=== PATIENT | male | born 1960 | race Caucasian/White ===

== ENCOUNTER 2025-05-29 10:27 | Outpatient (AMB) | payer MEDICARE, MEDICAID, SELFPAY ==
--- OUTSIDE RECORDS SUMMARY | 2024-03-29 11:53 | XMS_ITS | Encounter Summary ---
Author Organization [employer] Address [address] [place] [address] Care Team Providers Care Car Cleaner Name Role Phone Adeel Yeh MD Primary Care Provider [phone] Encounter Details Date Type Department Care Team (Late st Contact Info) Description 03/29/2024 12:53 PM EDT Hospital Encounter TH HISTORIC ENCOUNTERS EASTERN CONVERSION ONLY Tegan Marie PA [address] [place] [address] Social History Tobacco Use Types Packs/Day Years Used Date Smoking Tobacco: Every Day Cigarettes 1 55.9 Started: 1970 Passive Smoke Exposure: Current Smokeless [...] Record ed Within the last 3 months, christie w many times did you visit the [...] care for your loved ones. For example, child support specialist or elderly care for an older adult? [...] PCP team for further evaluation of leukocytosis. [facility], [...] He already participate in LDCT program through [facility] but he is transitioning to [facility], his next LDCT is coming up this month. He snores only if sleeps on his back. 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 He [...] 236 Neutrophil # 8.02 Lymph # 2.71 Avery 0.78 BUN 16 Creatinine 0.87 GFR 98 [...] MD Sign: Tegan Marie PA-C Hematology/Oncology [facility] [phone] documented in this encounter Plan of Treatment Upcoming Encounters Date Type Department Care Team (Late st Contact Info) Description 06/17/2025 8:00 AM EST Appointment [facility] CT Scan [address] [place] [address] documented as of this encounter Procedures Procedure Name Priority Date/Time Associated Diagnosis Comments ..MISCELLANEOUS REFERENCE LAB TEST 03/29/2024 documented in this encounter Results * Miscellaneous reference lab test (03/29/2024) us Provider Onbase LAB BLOOD ORDERABLES Final Re sult documented in this encounter Visit Diagnoses Not on filedocumented in this encounter Care Teams Car Cleaner Relationship Specialty Start Date End Date Adeel Yeh MD [address] [place] [phone] PCP - General 07/24/23 documented as of this encounter
--- OUTSIDE RECORDS SUMMARY | 2024-03-29 12:00 | XMS_ITS | Encounter Summary ---
Author Organization [employer] Address [address] [place] [address] Care Team Providers Care Nut Blanker Operator Name Role Phone Adeel Yeh MD Primary Care Provider [phone] Encounter Details Date Type Department Care Team (Late st Contact Info) Description 03/29/2024 1:00 PM EDT Hospital Encounter TH HISTORIC ENCOUNTERS EASTERN CONVERSION ONLY Tegan Marie PA [address] [place] [address] Social History Tobacco Use Types Packs/Day Years [...] do you feel lonely or isolated from th ose around you? Rarely 04/21/2025 Food Risk [...] for your loved ones. For example, child and adolescent psychiatrist or elderly care for an older adult? [...] as of this encounter Plan of Treatment Upcoming Encounters Date Type Department Care Team (Late st Contact Info) Description 06/17/2025 8:00 AM EST Appointment [facility] CT Scan [address] [place] [address] documented as of this encounter Visit Diagnoses Not on filedocumented in this encounter Care Teams Nut Blanker Operator Relationship Specialty Start Date End Date Adeel Yeh MD [address] [place] [phone] PCP - General 07/24/23 documented as of this encounter
--- OUTSIDE RECORDS SUMMARY | 2024-04-14 10:16 | XMS_ITS | Encounter Summary ---
Author Organization [facility] Address [address] [place] [address] Care Team Providers Care Automotive Welder Name Role Phone Adeel Yeh MD Primary Care Provider [phone] Encounter Details Date Type Department Care Team (Late st Contact Info) Description 04/14/2024 11:16 AM EDT Hospital Encounter TH HISTORIC ENCOUNTERS EASTERN CONVERSION ONLY Tegan Marie PA [address] [place] [address] Social History Tobacco Use Types Packs/Day Years [...] for your loved ones. For example, children's tutor nursery or elderly care for an older adult? [...] Marie PA-C Service: -- Author Type: Physician Farmworker Fruit Filed: 04/14/2024 12:50 PM Encounter Date: 04/14/2024 Status: Attested Robotic Maintenance Technician: Tegan Marie PA-C (Physician Farmworker Fruit) Cosigner: Gisselle Tirado DO at 04/18/2024 9:21 [...] for clinical reference and updated as needed) [facility] records date as far back as 2018, [...] He already participate in LDCT program through [facility] but he is transitioning to [facility], his next LDCT is coming up this month. He snores only if sleeps on his back. 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 [...] REMOVAL OF LUNG LOBE/LESI ? STENT, CORONARY, SOAHM 2016 SOCIAL HISTORY: Social History Tobacco Use [...] MD Sign: Tegan Marie PA-C Hematology/Oncology [facility] [phone] Attestation signed by Gisselle Tirado DO at 04/18/2024 9:21 PM Agree with note as above WBC now completely normal Recommend primary team follow up blood counts and pancreatic cyst, refer back PRN documented in this encounter Plan of Treatment Upcoming Encounters Date Type Department Care Team (Late st Contact Info) Description 06/17/2025 8:00 AM EST Appointment [facility] CT Scan [address] [place] [address] documented as of this encounter Procedures Procedure Name Priority Date/Time Associated Diagnosis Comments ..MISCELLANEOUS REFERENCE LAB TEST 04/14/2024 documented in this encounter Results * Miscellaneous reference lab test (04/14/2024) us Provider Onbase MD LAB BLOOD ORDERABLES Final Re sult documented in this encounter Visit Diagnoses Not on filedocumented in this encounter Care Teams Automotive Welder Relationship Specialty Start Date End Date Adeel Yeh MD [address] [place] [phone] PCP - General 07/24/23 documented as of this encounter
--- OUTSIDE RECORDS SUMMARY | 2024-04-14 10:30 | XMS_ITS | Encounter Summary ---
Author Organization [facility] Address [address] [place] [address] Care Team Providers Care Livestock Caretaker Name Role Phone Adeel Yeh MD Primary Care Provider [phone] Encounter Details Date Type Department Care Team (Late st Contact Info) Description 04/14/2024 11:30 AM EDT Hospital Encounter TH HISTORIC ENCOUNTERS EASTERN CONVERSION ONLY Tegan Marie PA [address] [place] [address] Social History Tobacco Use Types Packs/Day Years [...] your loved ones. For example, early childhood educator aide or elderly care for an older adult? [...] Info) Description 06/17/2025 8:00 AM EST Appointment [facility] Scan [address] [place] [address] documented as of this encounter Visit Diagnoses Not on filedocumented in this encounter Care Teams Livestock Caretaker Relationship Specialty Start Date End Date Adeel Yeh MD [address] [place] [phone] PCP - General 07/24/23 documented as of this encounter
--- NOTE | 2025-05-29 10:40 | A.PHYSOV_ITS ---
Vital Signs 05/29/25 10:45 Height 6 ft Weight 155 lb BMI 21.0 Intake Visit Reasons: Follow up after Elizabeth visit Intake Note: Patient is a 65 year old male here for follow up after seeing Dr Elliott. Mill Roll Operator Required: No Allergies No Known Allergies Allergy (Verified 05/29/25 10:41) HPI Comments Details: History of Present Illness The patient is a 65 year old individual presenting with neck pain. The patient recently had a surgical consultation where it was determined that surgery is not warranted at this time. The patient reports neck pain in the back of the neck which radiates to the left shoulder and occasionally the upper arm. The patient also notes intermittent numbness in the right arm. Pain in the left shoulder is reportedly worse at night, and neck movement causes clicking and crepitus. Previous treatments include cortisone injections in the shoulders, which provided relief for the shoulder pain but not the neck pain. A prior nerve block at the base of the skull is still providing relief for pain in that location. Patient did respond to left subacromial injection in August of 2024 as well as occipital nerve block in March of 2025 as well. Patient's superior experiencing 7/10 left-sided neck pain without radiculopathy at this time. We do have MRI of his cervical spine reported below. Patient would like to consider further treatment options. Pain Description - Location: The patient reports pain in the back of the neck, which radiates to the left shoulder and occasionally the upper arm. - A prior issue with pain at the base of the skull has resolved with a nerve block. - Quality: The patient describes the neck pain as bad and notes clicking, cracking, and grinding with movement. - The patient also reports the right arm feeling or numb at times. - Timing/Exacerbating factors: The left shoulder pain is worse at night. - Neck pain is exacerbated by turning the head, and cracking occurs with certain lifting motions. - Relieving factors: A previous nerve block at the base of the skull is still helping. - Prior cortisone injections improved the shoulder pain but not the neck pain. Procedure: Left subacromial injection 09/01/2024 Left occipital nerve block 04/05/2025 [facility] Surgical History (Updated 05/29/25 @ 10:43 by Madison Weiner MA) S/P partial lobectomy of lung Social History (Updated 05/29/25 @ 10:44 by Madison Weiner MA) Alcohol intake: current Alcohol intake frequency: does not drink Patient Tobacco Use Status: Current everyday Tobacco user Use of substances other than those prescribed or required for medical reasons: No Review of Systems Narrative Review of Systems - Neurological: Reports intermittent numbness in the right arm. - Musculoskeletal: Reports left-sided neck pain with radiation to the shoulder and upper arm. - Reports left shoulder pain, which is worse at night. - Reports crepitus in the neck with movement. Physical Exam Exam Exam: Physical Exam Cervical Spine: Examination of the cervical spine, there is no visible swelling or deformity. He is less tender to the left occiput but he is fractionating still operator to the left cervical paraspinal musculature. He has limited range of motion and lateral rotation and flexion to the left. Special Tests: Axial Compression test: Negative Spurlings test: Negative Lhermitte's sign is Negative Upper Extremities: He is less tender to the left lateral deltoid. He has full range of motion of the shoulder in all planes. LEs positive Neer testing. 5/5 rotator cuff strength throughout. Full range of motion of his elbow wrist and hand. Neuro: Sensation: Intact to upper extremities bilateral to light touch Strength C5 (Elbow Flexion): 5/5 on the left and 5/5 on the right. C6 (Elbow Ext): 5/5 on the left and 5/5 on the right. C7 (Elbow Ext): 5/5 on the left and 5/5 on the right. C8 (Finger Flex): 5/5 on the left and 5/5 on the right. T1 (Finger Abd/Add): 5/5 on the left and 5/5 on the right. DTR: C5 (Biceps): Left 2 Right 2 C6 (Brachioradialis): Left 1 Right 1 C7 (Triceps): Left 2 Right 2 Blanco sign: Negative No pathologic clonus. No involuntary movement. Vital Signs: BMI result Body Mass Index 21.0 Assessment & Plan Assessment & Plan (1) Occipital neuritis: Code(s): M54.81 - Occipital neuralgia Category: Medical (2) Impingement of left shoulder: Code(s): M25.812 - Other specified joint disorders, left shoulder Category: Medical (3) Cervicalgia: Code(s): M54.2 - Cervicalgia Category: Medical Plan Pain Management - Affect: The patient reports that the cracking sounds from the neck are bothersome. - Analgesia: Previous therapies include a cortisone shot in the shoulder, which helped shoulder pain, and a nerve block at the base of the skull, which is still providing relief. - Activities of Daily Living: The patient mentioned that their will be unable to drive for three months following an upcoming shoulder surgery. Plan Patient was informed and verbally consented to the use of an ambient scribe for clinic note documentation during this visit. 1. Cervicalgia And Cervical Spondylosis The patient's symptoms of left-sided neck pain with crepitus are more likely attributable to cervical arthritis rather than radiculopathy from a pinched nerve, as a prior shoulder injection alleviated the shoulder pain component. A surgical opinion has already determined that operative intervention is not necessary at this time. The plan is to proceed with cervical facet injections to target the arthritic pain, I will place order for left C3-4, C4-5, C5-6 facet injection Authorization will be obtained from insurance for the procedure, which will target three different levels. The injections will be performed by Dr. Zarco in a hospital setting. Follow-up is scheduled in three weeks post-procedure to assess efficacy. Orders: Referrals Physiatry Procedure Notification M54.2 - Cervicalgia Coding Level of Care Code Tele Est Pt Level 3 (02318) Diagnoses Occipital neuritis M54.81 Impingement of left shoulder M25.812 Cervicalgia M54.2
[2025-05-29 10:45] VITALS: BMI 21.0
--- OUTSIDE RECORDS SUMMARY | 2025-05-29 13:11 | XMS_ITS | Encounter Summary ---
Author Organization [facility] Address [address] [place] [address] Care Team Providers Care Glove Wrapper Name Role Phone Adeel Yeh MD Primary Care Provider [phone] Reason for Visit * Reason Onset Date Comments Appointment 05/24/2025 1st notification Encounter Details Date Type Department Care Team ([facility] Contact Info) Description 05/24/2025 Telephone Lung Screening Program - [place] [address] [place] [phone] Amy Trujillo MD [address] [place] [phone] Social History Tobacco Use Types Packs/Day Years [...] on file documented as of this encounter Progress Notes * Nelli Fernandez - 05/24/2025 1:28 PM EST Js Ross was contacted by the Lung Cancer Screening Program today to confirm the appointment of their Lung Cancer Screening. The patient is currently scheduled to have their screening on 06/17/25 at 8:00am at [facility]. For all screenings scheduled during the week, the patient will check in at Patient Registration on the first floor of the main hospital. For screenings that take place on the weekend or after 5pm, check-in directly in Radiology. The patient was given the Lung Cancer Screening Program phone number, , to contact if they have any additional questions, concerns or need to reschedule. Patients are encouraged to call our office and reschedule if they are exhibiting any cold-like symptoms, have recently been treated for Pneumonia or Influenza (the flu) or have had another CT of their Chest since their last screening. documented in this encounter Plan of Treatment Upcoming Encounters Date Type Department Care Team (Late st Contact Info) Description 06/17/2025 8:00 AM EST Appointment [facility] CT Scan [address] [place] [phone] documented as of this encounter Visit Diagnoses Not on filedocumented in this encounter Additional Health Concerns Assessment Noted Time PHQ-9 Depression Total Score: 0 04/28/20 10:12 AM EDT A fall risk assessment has been complete d for the patient 04/28/2025 10:11 AM EDT documented as of this encounter Care Teams Glove Wrapper Relationship Specialty Start Date End Date Adeel Yeh MD [address] [place] [phone] PCP - General 07/24/23 documented as of this encounter
--- OUTSIDE RECORDS SUMMARY | 2025-05-29 13:11 | XMS_ITS | Clinical Summary ---
Author Organization [facility] Address [address] [place] [address] Care Team Providers Care Improvement Director Name Role Phone Adeel Yeh MD Primary Care Provider [phone] Allergies No known active allergies Medications Medication Sig Dispensed Refills Start Date End Date Status isosorbide dinitrate (ISORDIL) 30 MG tablet Take 1 tablet (30 mg total) by mouth 4 (four) times a day. 0 Active aspirin EC 81 MG tablet Take 1 tablet (81 mg total) by mouth daily. 0 Active cyclobenzaprine (FLEXERIL) 10 MG tablet Take 1 tablet (10 mg total) by mouth 3 (three) times a day as needed for muscle spasms. 0 Active rosuvastatin (CRESTOR) tablet 40 mg Take 1 tablet (40 mg total) by mouth daily. 0 Active Cholecalciferol (Vitamin D) 50 MCG (2000 UT) tablet Take 2,000 Units by mouth daily. 0 Active Family History Medical History Relation Name Comments Lymphoma Father Ovarian cancer Mother Relation Name Status Comments Father Mother Social History Tobacco Use Types Packs/Day Years Used Date Smoking Tobacco: Every Day Cigarettes Tobacco Cessation:Ready to Q uit: Not Asked; Counseling Given: Not Answered Comments:Smokes 1 ppd Alcohol Use Standard Drinks/Week Comments Not Currently 0 (1 standard drink = 0.6 oz pure alcohol) Hx of heavy; no alcohol since May 2010 Sex and Gender Information Value Date Recorded Sex Assigned at Not on file Gender Identity Not on file Sexual Orientation Not on file Job Start Date Occupation Industry Not on file Not on file Not on file Last Filed Vital Signs Vital Sign Reading Time Taken Comments Blood Pressure 119/55 04/14/2024 11:35 AM EDT Pulse 74 04/14/2024 11:35 AM EDT Temperature 36.3 C (97.3 F) 04/14/2024 11:35 AM EDT Respiratory Rate - - Oxygen Saturation 100% 04/14/2024 11:35 AM EDT Inhaled Oxygen Concentration - - Weight 70.3 kg (155 lb) 04/14/2024 11:35 AM EDT Height 182.9 cm (6') 04/14/2024 11:35 AM EDT Body Mass Index 21.02 04/14/2024 11:35 AM EDT Plan of Treatment Health Maintenance Due Date Last Done Comments Hepatitis C Screening 1962 Pneumococcal Vaccine (1 of 2 - PCV) 02/04/1968 Depression Screening 1974 Preventative Health Evaluation 02/04/1980 DTap / Tdap / Td (1 - Tdap) 1981 Colon Cancer Screening (Colonoscopy) 2007 Shingrix-Zoster Vaccine (1 o f 2) 02/04/2012 COVID-19 Vaccine (3 - 2024-2 6 season) 2025 03/21/2021, 02/22/2021 Influenza Vaccine (#1) 2025 09/09/2019 RSV Adult > 60+ Yrs or (1 - 1-dose 75+ series) 2037 Hepatitis B Vaccines Aged Out No long er eligible based on patient's age to complete this topic RSV Ped < 20 months Aged Out No longe r eligible based on patient's age to complete this topic Care Teams Improvement Director Relationship Specialty Start Date End Date Adeel Yeh MD [address] [place] [phone] PCP - General Internal Medicine 02/22/24
--- OUTSIDE RECORDS SUMMARY | 2025-05-29 13:11 | XMS_ITS | Clinical Summary ---
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 Active nitroglycerin (NITROSTAT) 0.[address] 1 tablet (0.4 mg total) under the tongue every 5 (five) minutes if needed for chest pain. May repeat dose every 5 minutes for up to 3 doses total. 25 tablet 1 06/02/20 24 Active rosuvastatin (CRESTOR) 40 mg tablet TAKE 1 TABLET BY MOUTH EVERY DAY FOR 180 DAYS 90 tablet 1 01/06/20 25 Active isosorbide mononitrate (IMDUR) 30 mg 24 hr tabletIndicatio ns:Atherosclero tic heart disease of [place] coronary artery with other forms of angina pectoris (CMS/HCC V24) TAKE 1 TABLET BY MOUTH EVERY DAY 90 tablet 1 01/14/20 25 Active cholecalciferol (Vitamin D3) 50 mcg (2,000 unit) capsule Take 1 capsule (2,000 Units total) by mouth 1 (one) time each day. 90 capsule 1 04/06/20 25 Active varenicline tartrate (CHANTIX HALIE) 0.5 mg (11)- 1 mg (42) tablet Use as directed on package instructions, try to quit smoking after 1 week. 53 tablet 2 04/28/20 25 026 Active Additional Information Patient not taking.Reported on 05/03/2025 buPROPion SR (WELLBUTRIN SR) 150 mg 12 hr tablet Active traZODone (DESYREL) 50 mg tablet TAKE 1 TABLET BY MOUTH AT BEDTIME CAN INCREASE TO 2 IN 2 WEEKS IF NOT EFFECTIVE Active cyclobenzaprine (FLEXERIL) 10 mg tablet TAKE 1 TABLET BY MOUTH THREE TIMES A DAY NEEDED FOR MUSCLE SPASM 30 tablet 1 05/22/20 25 Active cyclobenzaprine (FLEXERIL) 10 mg tablet TAKE 1 TABLET BY MOUTH THREE TIMES A DAY NEEDED FOR MUSCLE SPASM 30 tablet 1 03/13/20 25 025 Discontinued Active Problems Problem Noted Date Diagnosed Date Cervical spondylosis with radiculopathy 05/03/20 Assessment & Plan (05/03/2025 12:41 PM EST): Mr. Carl describes about 6 months of left-sided neck pain with radiation to the left trapezius and shoulder. He admits to some numbness and tingling in the right hand as well as the sole of the right foot. Physical therapy but did not appreciate any relief. Injections with Dr. Zarco made it so that he could turn his head and neck again. Some conversation about an epidural steroid injection as the next option but he wanted to come see us first. He is neurologically intact without any myelopathic findings. A cervical spine MRI from [place] dated April 12, 2025 shows multilevel cervical spondylosis most significant at C3-4 and to a lesser extent at C5-6 and C6-7. At all of these levels a combination of disc osteophyte complex with hypertrophic changes in the facet joints and uncovertebral joints resulted in moderate spinal stenosis at all 3 levels. At C3-4 there was very mild cord compression without any signal change. At C5-6 and C6-7 there was effacement of the anterior cervical cord. He had C4 nerve root compression at C3-4 with narrowing of the C6 and C7 neuroforamina at their respective levels as well. We discussed nicotine and its role and accelerated degenerative changes in the spine. I made strong recommendations that he make every effort towards smoking cessation. We talked about a CT 3 4 anterior cervical discectomy and fusion as a possible surgical offering. I explained that he would have to quit smoking cigarettes before that would be offered. At this point he is going continue with Dr. Zarco. Call if he would like to follow-up or discuss things further. I also told him I would be happy to give him a prescription for a home traction unit as he did appreciate some relief with traction and physical therapy. He is welcome to follow-up with us in the future on an as needed basis. CAD (coronary artery disease) 06/24/2018 Overview (05/16/2024): Last Assessment & Plan: The patient has a history of coronary artery disease status post stent to the proximal LAD in August 2016. At that time, left heart catheterization also showed nonobstructive residual disease in the RCA and circumflex. He underwent a nuclear stress test May 2022 which was noted to be normal. He also underwent an echocardiogram which showed normal LV function and normal regional wall motion. He denies any exertional anginal symptoms. He continues on cardioprotective medical therapy with isosorbide mononitrate, rosuvastatin, and aspirin. Patient advised to seek emergency medical attention by calling 911 if they were to develop severe dyspnea, chest pain that did not resolve with rest or nitroglycerin, or if they were to faint. 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 He recently underwent laboratory work including a fasting lipid panel July 2023 which showed an LDL of 68. He will continue his current medical therapy with rosuvastatin 40 mg orally daily. I have reviewed with the patient the importance of a heart healthy lifestyle which includes eating a low-fat low-salt diet, getting regular exercise, maintaining a healthy weight, not smoking, and following up with routine medical care. Insomnia 06/24/2018 Nicotine dependence 06/24/2018 Overview (05/16/2024): Last Assessment & Plan: The patient has a longstanding history of chronic smoking. He has cut back to a half a pack per day. Smoking cessation education provided. He is not ready to quit. He is aware of the risk factor for worsening CAD, NV, and CVA. Personal history of alcoholism ([facility] V24, [facility] V28) 06/24/2018 Encounters Date Type Department Care Team Description 05/24/2025 Telephone Lung Screening Program - [place] [address] [facility] [address] [place] [id number] Amy Trujillo MD 05/03/2025 11:30 AM EST Consult Neurosurgery [place] - [place] [address] [facility] [address] [place] [address] Jeff Hunt PA Cervical spondylosis with radiculopathy (Primary Dx) 05/02/2025 Results Follow-Up Internal Medicine - [place] [address] [facility] [address] [place] [address] Adeel Yeh MD 04/28/2025 10:50 AM EDT Lab Draw Station - [address] [facility] [address] [facility] [address] [place] [address] Medicare annual wellness visit, initial; Other abnormal glucose; Other fatigue; Mixed hyperlipidemia 04/28/2025 10:00 AM EDT Office Visit Internal Medicine - [place] [address] [facility] [address] [place] [address] Adeel Yeh MD Medicare annual wellness visit, initial (Primary Dx); Coronary artery disease involving [place] coronary artery of [place] heart without angina pectoris; Chronic depression; Mixed hyperlipidemia; Cigarette nicotine dependence with nicotine-induced disorder; Routine general medical examination at a health care facility; Smoking greater than 40 pack years; Other fatigue; Other abnormal glucose 04/12/2025 4:55 PM EDT - 04/12/2025 11:59 PM EDT Hospital Encounter Radiology Department - [address] [address] Cervicalgia; Radiculopathy, cervical region Discharge Disposition: Home or Self Care from Last 3 Months Immunizations Immunization Administration Dates Next Due Pfizer SARS-CoV-2 COVID-19, mRNA, LNP-S, preservative free 03/21/2021,02/22/2021 Surgical History Surgery Date Site/Laterality Comments CORONARY STENT PLACEMENT 2016 PROCEDURE: STENT, CORONARY, SOHAM OTHER SURGICAL HISTORY PROCEDURE: REMOVAL OF LUNG LOBE/LESI OTHER SURGICAL HISTORY PROCEDURE: ---- OTHER ----; COMMENT: partial amputation of thumb Medical History Medical History Date Comments Chronic post-traumatic stres s disorder (PTSD) 06/24/2018 DX:Chronic post-traumatic st ress disorder (PTSD) Insomnia 06/24/2018 DX:Insomnia CAD (coronary artery disease) 06/24/2018 DX :CAD (coronary artery disease) Chronic depression 06/24/2018 DX:Chronic de pression Personal history of alcoholi sm ([facility] V24, [facility] V28) 06/24/2018 DX:Personal history of alcoh olism ([facility]) History of substance abuse ( [facility] V24, [facility] V28) 06/24/2018 DX:History of substance abus e ([facility]); COMMENT: In remission since 2009 Hyperlipidemia 06/24/2018 DX:Hyperlipidemi a Nicotine dependence 06/24/2018 DX:Nicotine dependence Degenerative disc disease, thoracic 06/24/2018 DX:Degenerative disc disease, thoracic Colon polyps 06/24/2018 DX:Colon polyps Family History Medical History Relation Name Comments Lymphoma Father Non-hodgkins Ovarian cancer Mother Relation Name Status Comments Father Mother Social History Tobacco Use Types Packs/Day Years Used Date Smoking Tobacco: Every Day Cigarettes 1 55.9 Started: 1970 Passive Smoke Exposure: Current Smokeless Tobacco: Never Tobacco Cessation:Ready to Q uit: Not Asked; Counseling Given: Not Answered Alcohol Use Standard Drinks/Week Comments Not Currently [...] ed Within the last 3 months, christie lockwood many times did you visit the emergency [...] for your loved ones. For example, child psychiatrist or elderly care for an older [...] AM EST Sexual Orientation Not on file Obstetrics History Last Filed Vital Signs Vital Sign Reading Time Taken Comments Blood Pressure 118/78 04/28/2025 9:35 AM EDT Pulse 72 04/28/2025 9:35 AM EDT Temperature 36.2 C (97.1 F) 04/28/2025 9:35 AM EDT Respiratory Rate - - Oxygen Saturation 99% 04/28/2025 9:35 AM EDT Inhaled Oxygen Concentration - - Weight 70.3 kg (155 lb) 05/03/2025 11:22 AM EST Height 182.9 cm (6') 05/03/2025 11:22 AM EST Body Mass Index 21.02 05/03/2025 11:22 AM EST Plan of Treatment Upcoming Encounters Date Type Department Care Team (Late st Contact Info) Description 06/17/2025 8:[address] [facility] CT Scan [address] [place] [address] Health Maintenance Due Date Last Done Comments DTaP,Tdap,and Td Vaccines (1 - Tdap) 1981 Pneumococcal Vaccine: 50+ Years (1 of 2 - PCV) 1981 RSV Immunization Adult Patients (1 - Risk 50-74 years 1-dose series) 02/04/2012 Zoster Vaccines (1 of 2) 02/04/2012 HIV Screening 06/01/2022 COVID-19 Vaccine (3 - 2024-2 6 season) 2025 03/21/2021, 02/22/2021 Influenza Vaccine (#1) 2025 09/09/2019 Lung Cancer Screening (Low Dose CT) 06/16/2025 06/16/2024 Social Influencers of Health Screening 04/21/2026 04/21/2025 Hypertension/CHF/CAD Annual BMP Blood Test 04/28/2026 04/28/2025, 02/01/2024, 02/01/2024 Medicare Annual Wellness Visit 04/28/2026 04/28/2025 Colorectal Cancer Screening: Colonoscopy 07/09/2028 07/09/2018 Cholesterol Screening (Lipid Panel) 04/28/2030 04/28/2025, 08/19/2023 Hepatitis C Screening Completed 08/19/2023 Depression Screening Completed 04/28/2025, 02/17/2024 HIB Vaccines Aged Out No longer eligi ble based on patient's age to complete this topic HPV Vaccines Aged Out No longer eligi ble based on patient's age to complete this topic Hepatitis A Vaccines Aged Out No long er eligible based on patient's age to complete this topic Hepatitis B Vaccines Aged Out No long er eligible based on patient's age to complete this topic IPV Vaccines Aged Out No longer eligi ble based on patient's age to complete this topic MMR Vaccines Aged Out No longer eligi ble based on patient's age to complete this topic Meningococcal ACWY Vaccine Aged Out N o longer eligible based on patient's age to complete this topic Meningococcal B Vaccine Aged Out No l onger eligible based on patient's age to complete this topic RSV Immunization Patients Under 20 months Aged Out No longer eligible b ased on patient's age to complete this topic Varicella Vaccines Aged Out No longer eligible based on patient's age to complete this topic Procedures Procedure Name Priority Date/Time Associated Diagnosis Comments CBC WITH AUTO DIFFERENTIAL Routine 04/28/2025 10:47 AM EDT Medicare annual wellness visit, initial Other fatigue LIPID PANEL WITH REFLEX TO DIRECT LDL Routine 04/28/2025 10:47 AM EDT Medicare annual wellness visit, initial Mixed hyperlipidemia CBC AND DIFFERENTIAL Routine 04/28/2025 10:47 AM EDT Medicare annual wellness visit, initial Other fatigue COMPREHENSIVE METABOLIC PANEL Routine 04/28/2025 10:47 AM EDT Medicare annual wellness visit, initial Other fatigue THYROID STIMULATING HORMONE WITH REFLEX TO FREE T4 AND FREE T3 Routine 04/28/2025 10:47 AM EDT Medicare annual wellness visit, initial Other fatigue HEMOGLOBIN A1C Routine 04/28/2025 10:47 AM EDT Medicare annual wellness visit, initial Other abnormal glucose MR CERVICAL SPINE WO CONTRAST Routine 04/12/2025 5:56 PM EDT Cervicalgia Radiculopathy, cervical region CT LUNG SCREENING Routine 06/16/2024 11: 11 AM EST Personal history of nicotine dependence HM DEPRESSION SCREENING Routine 02/17/2024 HEPATITIS C SCREENING Routine 08/19/2023 COLONOSCOPY Routine 07/09/2018 from Last 3 Months or Most Recently Relevant to Health Maintenance Results * Thyroid stimulating hormone with reflex to free t4 and free t3 (04/28/2025 10:47 AM EDT) TSH 0.44 0.40 - 4.00 mcIU/mL LAB CHEMISTRY METHOD 04/28/2025 4:15 PM EDT [facility] Blood Venous blood specimen / Unknown Venipuncture / Unknown 04/28/2025 10:47 AM EDT 04/28/2025 10:47 AM EDT us Adeel Yeh MD LAB BLOOD ORDERABLES Final Resul t [facility] [address] [place] [address], [place] [phone] * Lipid panel with reflex to direct LDL (04/28/2025 10:47 AM EDT) Pathologist [facility] Cholesterol 132 0 - 200 mg/dL LAB CHEMISTRY METHOD 04/28/2025 4:11 PM EDT [facility] Triglycerides 98 0 - 150 mg/dL LAB CHEMISTRY METHOD 04/28/2025 4:11 PM EDT [facility] HDL 55 >=40 mg/dL LAB CHEMISTRY METHOD 04/28/2025 4:11 PM EDT [facility] LDL Calculated 57 0 - 100 mg/dL LAB CHEMISTRY METHOD 04/28/2025 4:11 PM EDT [facility] Comment:Estimated LDL Calcul ated using equation: Total cholesterol - HDL cholesterol - (Triglycerides/5) VLDL Cholesterol German 19.6 mg/dL LAB CHEMISTRY METHOD 04/28/2025 4:11 PM EDT [facility] Non HDL Chol. (LDL+VLDL) 77 <145 mg/dL LAB CHEMISTRY METHOD 04/28/2025 4:11 PM EDT [facility] Chol/HDL Ratio 2.4 0.0 - 4.4 LAB CHEMISTRY METHOD 04/28/2025 4:11 PM EDT [facility] Blood Venous blood specimen / Unknown Venipuncture / Unknown 04/28/2025 10:47 AM EDT 04/28/2025 10:47 AM EDT us Adeel Yeh MD LAB BLOOD ORDERABLES Final Resul t [facility] [address] [place] [address], [place] [phone] * (ABNORMAL) CBC auto differential (04/28/2025 10:47 AM EDT) WBC 11.7(H) 4.8 - 10.8 K/mcL LAB HEMETOLOGY METHOD 04/28/2025 2:21 PM EDT [facility] RBC 5.00 4.50 - 5.50 M/mcL LAB HEMETOLOGY METHOD 04/28/2025 2:21 PM EDT [facility] Hemoglobin 15.6 13.5 - 17.5 g/dL LAB HEMETOLOGY METHOD 04/28/2025 2:21 PM EDT [facility] Hematocrit 47.8 42.0 - 54.0 % LAB HEMETOLOGY METHOD 04/28/2025 2:21 PM EDT [facility] MCV 96.4 79.0 - 98.0 FL LAB HEMETOLOGY METHOD 04/28/2025 2:21 PM EDT [facility] MCH 31.5 27.0 - 32.0 pcg LAB HEMETOLOGY METHOD 04/28[facility]25 [facility] MCHC 32.6 32.0 - 37.0 g/dL LAB HEMETOLOGY METHOD 04/28/2025 2:21 PM EDT [facility] RDW 12.3 11.0 - 15.0 % LAB HEMETOLOGY METHOD 04/28/2025 2:21 PM EDT [facility] Platelets 230 130 - 400 K/mcL LAB HEMETOLOGY METHOD 04/28/2025 2:21 PM T [facility] MPV 9.7 7.0 - 11.0 FL LAB HEMETOLOGY METHOD 04/28/2025 2:21 PM EDT [facility] NRBC 0.0 <1.0 % LAB HEMETOLOGY METHOD 04/28/2025 2:21 PM EDT [facility] NRBC Absolute 0.00 <0.10 K/mcL LAB HEMETOLOGY METHOD 04/28/2025 2:21 PM [facility] Neutrophils Relative 68.3 % LAB HEMETOLOGY METHOD 04/28/2025 2:21 PM [facility] Lymphocytes Relative 22.9 % LAB HEMETOLOGY METHOD 04/28/2025 2:21 PM [facility] Monocytes Relative 6.7 % LAB HEMETOLOGY METHOD 04/28/2025 2:21 PM [facility] Eosinophils Relative 1.2 % LAB HEMETOLOGY METHOD 04/28/2025 2:21 PM [facility] Basophils Relative 0.5 % LAB HEMETOLOGY METHOD 04/28/2025 2:21 PM [facility] Immature Granulocytes Relative 0.4 % LAB HEMETOLOGY METHOD 04/28/2025 2:21 PM EDT [facility] Neutrophils Absolute 7.96(H) 1.50 - 7.00 K/mcL LAB HEMETOLOGY METHOD 04/28[facility]2025 [facility] Lymphocytes Absolute 2.67 1.00 - 5.00 K/mcL LAB HEMETOLOGY METHOD 04/28/2025 2:21 PM EDT [facility] Monocytes Absolute 0.78 0.20 - 1.00 K/[facility] LAB HEMETOLOGY METHOD 04/28/2025 2:21 PM EDT [facility] Eosinophils Absolute 0.14 0.00 - 0.50 K/mcL LAB HEMETOLOGY METHOD 04/28/2025 2:21 PM EDT [facility] Basophils Absolute 0.06 0.00 - 0.20 K/[facility] LAB HEMETOLOGY METHOD 04/28/2025 2:21 PM EDT [facility] Immature Granulocytes Absolute 0.05(H) 0.00 - 0.03 K/[facility] LAB HEMETOLOGY METHOD 04/28/2025 2:21 PM EDT [facility] Blood Venous blood specimen / Unknown Venipuncture / Unknown 04/28/2025 10:47 AM EDT 04/28/2025 10:47 AM EDT Adeel Yeh MD LAB BLOOD ORDERABLES Final Resul t Performing Organization Address City/[facility]/ZIP Co de Phone Number [facility] [address] [place] [address], * Hemoglobin A1c (04/28/2025 10:47 AM EDT) Hemoglobin A1C 6.4 <6.5 % LAB CHEMISTRY METHOD 04/28/2025 4:09 PM EDT [facility] Mean Bld Glu Estim. 137 mg/dL LAB CHEMISTRY METHOD 04/28/2025 4:09 PM EDT [facility] Blood Venous blood specimen / Unknown Venipuncture / Unknown 04/28/2025 10:47 AM EDT 04/28/2025 10:47 AM EDT Adeel Yeh MD LAB BLOOD ORDERABLES Final Resul t [facility] [address] [place] [address], [place] [phone] * Comprehensive metabolic panel (04/28/2025 10:47 AM EDT) Sodium 139 133 - 145 mmol/L LAB CHEMISTRY METHOD 04/28/2025 4:11 PM EDT [facility] Potassium 4.9 3.5 - 5.5 mmol/L LAB CHEMISTRY METHOD 04/28/2025 4:11 PM T [facility] Chloride 106 96 - 110 mmol/L LAB CHEMISTRY METHOD 04/28/2025 4:11 PM [facility] CO2 26 21 - 32 mmol/L LAB CHEMISTRY METHOD 04/28/2025 4:11 PM [facility] Anion Gap 7 3 - 11 LAB CHEMISTRY METHOD 04/28/2025 4:11 PM [facility] Glucose 87 70 - 100 mg/dL LAB CHEMISTRY METHOD 04/28/2025 4:11 PM [facility] BUN 15 5 - 25 mg/dL LAB CHEMISTRY METHOD 04/28/2025 4:11 PM [facility] Creatinine 0.98 0.70 - 1.30 mg/dL LAB CHEMISTRY METHOD 04/28/2025 4:11 PM [facility] eGFR 87 >=60 mL/min/1. 73m2 LAB CHEMISTRY METHOD 04/28/2025 4:11 PM [facility] Comment:Calculation based on the Chronic Kidney Disease Epidemiology Collaboration (CKD-EPI) equation refit without adjustment for race. BUN/Creatinine Ratio 15.3 LAB CHEMISTRY METHOD 04/28/2025 4:11 PM [facility] Calcium 9.5 8.5 - 10.5 mg/dL LAB CHEMISTRY METHOD 04/28/2025 4:11 PM [facility] AST (SGOT) 22 10 - 42 unit/L LAB CHEMISTRY METHOD 04/28/2025 4:11 PM EDT [facility] ALT (SGPT) 49 10 - 60 unit/L LAB CHEMISTRY METHOD 04/28/2025 4:11 PM EDT [facility] Alkaline Phosphatase 104 42 - 121 unit/L LAB CHEMISTRY METHOD 04/28/2025 4:11 PM EDT [facility] Total Protein 6.9 6.0 - 8.0 g/dL LAB CHEMISTRY METHOD 04/28/2025 4:11 PM EDT [facility] Albumin 4.4 3.2 - 5.0 g/dL LAB CHEMISTRY METHOD 04/28/2025 4:11 PM EDT [facility] Total Bilirubin 0.6 0.0 - 1.4 mg/dL LAB CHEMISTRY METHOD 04/28/2025 4:11 PM EDT [facility] Blood Venous blood specimen / Unknown Venipuncture / Unknown 04/28/2025 10:47 AM EDT 04/28/2025 10:47 AM EDT us Adeel Yeh MD LAB BLOOD ORDERABLES Final Resul t [facility] [address] [place] [address], * MR Cervical Spine wo Contrast (04/12/2025 5:56 PM EDT) Anatomical Region Laterality Modality C-spine, Spine Magnetic Resonan ce 04/16/2025 1:00 AM EDT Narrative 04/16/2025 1:34 AM EDT MRI of the cervical spine without intravenous contrast. History left-sided neck and shoulder pain. No previous studies are available for comparison. Cerebellar tonsils are normally positioned. Vertebral bodies are maintained in height. C2-3 level is unremarkable. At C3-4 level there is disc osteophyte complex obliterating the anterior subarachnoid space and mildly compressing the anterior surface of the spinal cord. There are hypertrophic changes in the facet and uncovertebral joints joints. There is narrowing of the C4 neural foramina bilaterally. There is possible compression of the C4 nerve roots. At C4-5 level there is minimal retrolisthesis of C4 over C5. Disc is decreased in T2 signal. There is mild diffuse bulging of the disc. There is no spinal cord or nerve root compression. At C5-6 level disc is decreased in height and T2 signal. There is are disc osteophyte complex with narrowing of the anterior subarachnoid space and effacement of the anterior surface of the spinal cord. There is mild narrowing of the C6 neural foramina bilaterally. At C6-7 level disc is decreased in height and T2 signal. There is disc osteophyte complex obliterating the anterior subarachnoid space and abutting the anterior surface of the spinal cord. There is narrowing of the lateral recesses and C7 neural foramina. C7-T1 level is unremarkable. Spinal cord was visualized without evidence of from focal signal abnormalities. Perivertebral soft tissues are unremarkable. CONCLUSIONS: Multilevel bony and discs degenerative changes with mild compression of the anterior surface of the spinal cord at C3-4 level, effacement of the anterior surface of the spinal cord at C5-6 and C6-7 levels. Narrowing of the lateral recesses and neural foramina at multiple levels as detailed in the report. No focal signal abnormalities within the cord. -------- FINAL REPORT -------- Dictated By: Tegan Fu Dictated Date: 04/16/2025 01:00 ET Assigned Physician: Tegan Fu Reviewed and Electronically Signed By: Tegan Fu Signed Date: 04/16/2025 01:34 ET Workstation ID: [id number] Transcribed By: Self Edit Transcribed Date: 04/16/2025 01:00 ET Procedure Note Tegan Fu MD - 04/16/2025 MRI of the cervical spine without intravenous contrast. History left-sided neck and shoulder pain. No previous studies are available for comparison. Cerebellar tonsils are normally positioned. Vertebral bodies aremaintained in height. C2-3 level is unremarkable. At C3-4 level there is disc osteophyte complex obliterating the anteriorsubarachnoid space and mildly compressing the anterior surface of thespinal cord. There are hypertrophic changes in the facet and uncovertebraljoints joints. There is narrowing of the C4 neural foramina bilaterally.There is possible compression of the C4 nerve roots. At C4-5 level there is minimal retrolisthesis of C4 over C5. Disc isdecreased in T2 signal. There is mild diffuse bulging of the disc. Thereis no spinal cord or nerve root compression. At C5-6 level disc is decreased in height and T2 signal. There is are discosteophyte complex with narrowing of the anterior subarachnoid space andeffacement of the anterior surface of the spinal cord. There is mildnarrowing of the C6 neural foramina bilaterally. At C6-7 level disc is decreased in height and T2 signal. There is discosteophyte complex obliterating the anterior subarachnoid space andabutting the anterior surface of the spinal cord. There is narrowing ofthe lateral recesses and C7 neural foramina. C7-T1 level is unremarkable. Spinal cord was visualized without evidence of from focal signalabnormalities. Perivertebral soft tissues are unremarkable. CONCLUSIONS: Multilevel bony and discs degenerative changes with mild compression ofthe anterior surface of the spinal cord at C3-4 level, effacement of theanterior surface of the spinal cord at C5-6 and C6-7 levels. Narrowing ofthe lateral recesses and neural foramina at multiple levels as detailed inthe report. No focal signal abnormalities within the cord. -------- FINAL REPORT -------- Dictated By: Tegan Fu Dictated Date: 04/16/2025 01:00 ET Assigned Physician: Tegan Fu Reviewed and Electronically Signed By: Tegan Fu Signed Date: 04/16/2025 01:34 ET Workstation ID: [id number] Transcribed By: Self Edit Transcribed Date: 04/16/2025 01:00 ET us [facility] IM MRI PROCEDURES Final Resul t * CT Lung Screening (06/16/2024 11:11 AM EST) Anatomical Region Laterality Modality Chest Computed Tomogra phy 06/17/2024 10:1 9 AM EST Impressions 06/17/2024 11:05 AM EST Stable exam. Lung-RADS 2. Follow up examination is advised in one year. -------- FINAL REPORT -------- Dictated By: Vinicio Joshi Dictated Date: 06/17/2024 10:19 ET Assigned Physician: Vinicio Joshi Reviewed and Electronically Signed By: Vinicio Joshi Signed Date: 06/17/2024 11:05 ET Workstation ID: [id number] Transcribed By: Self Edit Transcribed Date: 06/17/2024 10:19 ET Narrative 06/17/2024 11:05 AM EST PROCEDURE: CT chest lung cancer screening low dose examination. INDICATION: CT lung screening. TECHNIQUE: Chest CT without intravenous contrast was performed. Low-dose examination was performed. Reformatted images were evaluated. DOSE: CTDIvol: 4.8mGy. Total exam DLP: 185.8mGy-cm COMPARISON: CT chest October 2022. CT chest December 2019. CT chest May 2007 FINDINGS: NODULES: A nodule in the left lower lobe appears stable compared to previous examination in October 2022 measuring 1.3 x 0.8 cm. This is noted adjacent to a region of scarring and calcification. No new nodularity is identified. LUNGS: Minimal emphysematous changes. OTHER: Limited views of the upper abdomen appear normal. Coronary atherosclerotic disease. Atherosclerotic disease of the aorta without aneurysm. Amy Trujillo MD IMG CT PROCEDURES Final Result * Depression Screening (02/17/2024) Pathologist [facility] Depression Screening Abstracted Result [facility] [place] [facility] Final Result * Hepatitis C Screening (08/19/2023) [facility] Hepatitis C Screening Abstracted Result [facility] [place] [facility] Final Result * Colonoscopy (07/09/2018) [facility] Colonoscopy No Interpretation , Abstracted Anatomical Region Laterality Modality Other Result [facility] [place] [facility] Final Result from Last 3 Months or Most Recently Relevant to Health Maintenance Insurance MEDICARE [place] [employer] Advance Directives * Full Code - Confirmed (Latest Code Status on File) Date Activated Date Inactivated Comments 04/28/2025 10:[address] [facility] was ascertained in the following way: Code status discussion: discussion with patient To update the patient's code status, place a code status order. Do not modify or discontinue any currently active code status orders. Care Teams Booster Plant Operator Relationship Specialty Start Date End Date Adeel Yeh MD [address] [place] [address] [id number] PCP - General 07/24/23
--- OUTSIDE RECORDS SUMMARY | 2025-05-29 13:11 | XMS_ITS | Data Portability ---
Author Organization [place] - [employer] [facility], [facility] Carpenter Inspector Address [address] [place] [address] Care Team Providers Care Mica Miner Blasting Name Role Phone [facility]OL[facility] OUTPATIENT Psychia trist Assessment No assessment recorded. Plan of Treatment Reminders Order Date Submit Date Provider Last Modified By Organization Details Last Modified Time Details Appointments None recorded . Lab CBC w/ diff 2021 022 [facility] - Lab, [address] [place] [address], 20[address], 2 15:46:32 lipid panel, serum [address] - Lab, [address] [place] [address], 89675, 2 11:26:22 CMP, serum or plasma 2021 022 [facility] - Lab, [address] [place] [address], 87825, 2 16:07:37 TSH, serum or plasma 2021 022 [facility] - Lab, [address] [place] [address], 65815, 2 16:07:38 CBC w/ diff 2020 021 [facility] - Lab, [address] [place] [address], 11846, 13:18:22 Referral pain manageme nt referral - pt with neck and low back pain, prior initial imaging. Pls E&T 2021 022 [email or web address] [facility] (Micah Herring), [address] [facility] [place], [address], 2 08:41:56 physical therapis t referral 2020 021 [facility], [address] [facility] [place], [place], [address], 11:34:18 mental health counselo r referral - CBT for sleep disorder ; hopefull y, get him off quetiapi ne 2020 021 [email or web address] Not available 12:51:18 Procedures None recorded . Surgeries None recorded . Imaging XR, shoulder , 2 or more view 2020 021 [email or web address] [facility] Central Scheduling, [address] [place], [address], 15:51:20 MRI, cervical spine, w/o contrast - Please include T1 nerves as well, since C5 and T1 are next to each other (dermato aury) in the affected area of forearm. 2019 020 [facility] (Central Scheduling), [address] [facility], [place], [address], 0 16:02:22 Medication Orders doxycycl ine monohydr ate 100 mg capsule 2020 022 [facility]/Pharmacy #[id number], [address] [facility] [place], [address], 2 11:33:05 cycloben zaprine 10 mg tablet 2020 021 [facility]/Pharmacy #[id number], [address] [facility] [place], [address], 11:27:23 quetiapi ne 100 mg tablet 2020 021 [email or web address] [facility]/Pharmacy #[id number], [address] [facility] [address], [place], [address], 11:33:17 Patient TargetsNo targets recorded. Patient Instructions Encounter Date Encounter Id Patient Instructions Last Modified By Organization Details Last Modified Time 11/15/2020 [id number] cellulitis: care instructions [email or web address] Not available 11/15/2020 09:30:29 07/26/2021 [id number] I evaluated the patient following covid- 19 protocols, wearing N95 mask, eye protection and other PPE as needed in this patient's circumstance. Patient evaluation today required 50% of this 30 minute visit devoted to counseling and education re: health problems, self care, medication dosing and SE/AR. Not available 07/27/2021 12:01:29 Reason for Referral Mental Health Counselor Refe rral for Chronic insomnia CBT for sleep disorder; hopefully, get him off quetiapine Referring Physician: [facility], [phone] Encounter Date: 09/17/2020 Physical Therapist Referral for Pain of shoulder region Referring Physician: Radha [facility], [phone] Encounter Date: 10/18/2020 Pain Management Referral for Degeneration of cervical intervertebral disc pt with neck and low back pain, prior initial imaging. Pls E&T Referring Physician: Vilma Espana [facility], [phone] Encounter Date: 07/26/2021 Results Created Date Observation Date Name Description Value Unit Range Abnormal Flag Note LastModifiedBy Organization Detail LastModifiedTime 09/19/1909/18/2020 CBC w/ diff white blood count 12.4 K/mm3 4.0-11 .0 high Not Available [address] [place] [address], [address], 09/18/2020 13:18:22 09/19/19 21 09/18/2020 CBC w/ diff red blood count 4.97 M/uL 4.20-5 .80 normal Not Available [address] [place] [address], 04[address], 09/18/2020 13:18:22 09/19/19 21 09/18/2020 CBC w/ diff hemoglobin 15.5 gm/dL 12.5-1 7.0 normal Not Available [address] [place] [address], 12[address], 09/18/2020 13:18:22 09/19/19 21 09/18/2020 CBC w/ diff hematocrit 47.2 % 37.0-5 0.0 normal Not Available [address] [place] [address], 959[address], 09/18/2020 13:18:22 09/19/19 21 09/18/2020 CBC w/ diff mean corpuscular volume 95.0 fL 80.0-1 00.0 normal Not Available [address] [place] [address], 47698, 09/18/2020 13:18:22 09/19/19 21 09/18/2020 CBC w/ diff MCHC 32.8 % 32-37 normal Not Available [address] [place] [address], 558[address], 09/18/2020 13:18:22 09/19/19 21 09/18/2020 CBC w/ diff red cell distribution width 12.3 % 11.5-1 6.0 normal Not Available [address] [place] [address], 02693, 09/18/2020 13:18:22 09/19/19 21 09/18/2020 CBC w/ diff platelet count 272 K/uL 140-40 0 normal Not Available [address] [place] [address], 01832, 09/18/2020 13:18:22 09/19/19 21 09/18/2020 CBC w/ diff mean platelet volume 9.8 fL 8.6-12 .5 normal Not Available [address] [place] [address], [address], 09/18/2020 13:18:22 09/19/19 21 09/18/2020 CBC w/ diff %nucleated RBC auto 0.0 % 0.0-0. 7 normal Not Available [address] [place] [address] [address] [place] [address], 66[address], 09/18/2020 13:18:22 09/19/19 21 09/18/2020 CBC w/ diff %neutrophils auto 60.4 % Not Available [address] [facility] Drawing Station [address] [place] [address], 556[address], 09/18/2020 13:18:22 09/19/19 21 09/18/2020 CBC w/ diff %lymphocytes auto 29.3 % Not Available [address] [facility] Drawing Station [address] [place] [address], 55[address], 09/18/2020 13:18:22 09/19/19 21 09/18/2020 CBC w/ diff %monocytes auto 7.1 % Not Available [address] [facility] Drawing Station [address] [place] [address], 88135, 09/18/2020 13:18:22 09/19/19 21 09/18/2020 CBC w/ diff %eosinophils auto 2.2 % Not Available [address] [facility] Drawing Station [address] [place] [address], 09766, 09/18/2020 13:18:22 09/19/19 21 09/18/2020 CBC w/ diff %basophils auto 0.6 % Not Available [address] [facility] Drawing Station [address] [place] [address], 29848, 09/18/2020 13:18:22 09/19/19 21 09/18/2020 CBC w/ diff %immature granulocytes auto 0.4 % Not Available [address] No [facility] Drawing Station [address] [place] [address], 44149, 09/18/2020 13:18:22 09/19/19 21 09/18/2020 CBC w/ diff #neutrophils auto 7.48 K/uL 1.50-7 .50 normal Not Available [address] [place] [address], [address], 09/18/2020 13:18:22 09/19/19 21 09/18/2020 CBC w/ diff #lymphocytes auto 3.63 K/uL 1.00-4 .50 normal Not Available [address] [place] [address], 224[address], 09/18/2020 13:18:22 09/19/19 21 09/18/2020 CBC w/ diff #monocytes auto 0.88 K/uL 0.00-0 .80 high Not Available [address] [place] [address], 05697, 09/18/2020 13:18:22 09/19/19 21 09/18/2020 CBC w/ diff #eosinophils auto 0.27 K/uL 0.00-0 .40 normal Not Available [address] [place] [address], 23724, 09/18/2020 13:18:22 09/19/19 21 09/18/2020 CBC w/ diff #basophils auto 0.07 K/uL 0.00-0 .20 normal Not Available [address] [place] [address], 83870, 09/18/2020 13:18:22 09/19/19 21 09/18/2020 CBC w/ diff #immature granulocytes auto 0.05 K/uL 0.00-0 .10 normal Not Available [address] [place] [address], 69353, 09/18/2020 13:18:22 08/19/19 22 08/19/2021 COMPL ETE BLOOD COUNT W/ DIFF white blood count 12.2 K/mm3 4.0-11 .0 high Not Available [address] [place] [address], 27684, 08/19/2021 15:46:32 08/19/19 22 08/19/2021 COMPL ETE BLOOD COUNT W/ DIFF red blood count 5.14 M/uL 4.20-5 .80 normal Not Available [address] [place] [address], 05773, 08/19/2021 15:46:32 08/19/19 22 08/19/2021 COMPL ETE BLOOD COUNT W/ DIFF hemoglobin 16.1 gm/dL 12.5-1 7.0 normal Not Available [address] [place] [address], 89417, 08/19/2021 15:46:32 08/19/19 22 08/19/2021 COMPL ETE BLOOD COUNT W/ DIFF hematocrit 50.1 % 37.0-5 0.0 high Not Available [address] [place] [address], 81126, 08/19/2021 15:46:32 08/19/19 22 08/19/2021 COMPL ETE BLOOD COUNT W/ DIFF mean corpuscular volume 97.5 fL 80.0-1 00.0 normal Not Available [address] [place] [address], 70051, 08/19/2021 15:46:32 08/19/19 22 08/19/2021 COMPL ETE BLOOD COUNT W/ DIFF MCHC 32.1 % 32-37 normal Not Available [address] [place] [address], 24360, 08/19/2021 15:46:32 08/19/19 22 08/19/2021 COMPL ETE BLOOD COUNT W/ DIFF red cell distribution width 12.1 % 11.5-1 6.0 normal Not Available [address] [place] [address], 96594, 08/19/2021 15:46:32 08/19/19 22 08/19/2021 COMPL ETE BLOOD COUNT W/ DIFF platelet count 266 K/uL 140-40 0 normal Not Available [address] [place] [address], 44784, 08/19/2021 15:46:32 08/19/19 22 08/19/2021 COMPL ETE BLOOD COUNT W/ DIFF mean platelet volume 10.1 fL 8.6-12 .5 normal Not Available [address] [place] [address] [address] [place] [address], 70102, 08/19/2021 15:46:32 08/19/19 22 08/19/2021 COMPL ETE BLOOD COUNT W/ DIFF %nucleated RBC auto 0.0 % 0.0-0. 7 normal Not Available [address] [place] [address] [address] [place] [address], 49134, 08/19/2021 15:46:32 08/19/19 22 08/19/2021 COMPL ETE BLOOD COUNT W/ DIFF %neutrophils auto 66.2 % Not Available 610 No [facility] Drawing Station [address] [place] [address], 90046, 08/19/2021 15:46:32 08/19/19 22 08/19/2021 COMPL ETE BLOOD COUNT W/ DIFF %lymphocytes auto 25.2 % Not Available 610 No [facility] Drawing Station [address] [place] [address], 70904, 08/19/2021 15:46:32 08/19/19 22 08/19/2021 COMPL ETE BLOOD COUNT W/ DIFF %monocytes auto 5.6 % Not Available 610 No [facility] Drawing Station [address] [place] [address], 85891, 08/19/2021 15:46:32 08/19/19 22 08/19/2021 COMPL ETE BLOOD COUNT W/ DIFF %eosinophils auto 2.2 % Not Available [address] [facility] Drawing Station [address] [place] [address], 06887, 08/19/2021 15:46:32 08/19/19 22 08/19/2021 COMPL ETE BLOOD COUNT W/ DIFF %basophils auto 0.6 % Not Available [address] [facility] Drawing Station [address] [place] [address], 98037, 08/19/2021 15:46:32 08/19/19 22 08/19/2021 COMPL ETE BLOOD COUNT W/ DIFF %immature granulocytes auto 0.2 % Not Available [address] [facility] [address] Drawing Station [address] [place] [address], 29345, 08/19/2021 15:46:32 08/19/19 22 08/19/2021 COMPL ETE BLOOD COUNT W/ DIFF #neutrophils auto 8.04 K/uL 1.50-7 .50 high Not Available [address] [place] [address], 53834, 08/19/2021 15:46:32 08/19/19 22 08/19/2021 COMPL ETE BLOOD COUNT W/ DIFF #lymphocytes auto 3.07 K/uL 1.00-4 .50 normal Not Available [address] [place] [address], 72574, 08/19/2021 15:46:32 08/19/19 22 08/19/2021 COMPL ETE BLOOD COUNT W/ DIFF #monocytes auto 0.68 K/uL 0.00-0 .80 normal Not Available [address] [place] [address], 00243, 08/19/2021 15:46:32 08/19/19 22 08/19/2021 COMPL ETE BLOOD COUNT W/ DIFF #eosinophils auto 0.27 K/uL 0.00-0 .40 normal Not Available [address] [place] [address], 12000, 08/19/2021 15:46:32 08/19/19 22 08/19/2021 COMPL ETE BLOOD COUNT W/ DIFF #basophils auto 0.07 K/uL 0.00-0 .20 normal Not Available [address] [place] [address], 51231, 08/19/2021 15:46:32 08/19/19 22 08/19/2021 COMPL ETE BLOOD COUNT W/ DIFF #immature granulocytes auto 0.03 K/uL 0.00-0 .10 normal Not Available [address] [place] [address], 13114, 08/19/2021 15:46:32 08/19/19 22 08/19/2021 COMPR EHENS EDWIN METAB OLIC PANEL sodium 140 mEq/L 135-14 5 normal Not Available [address] [place] [address] [place] [address], 05803, 08/19/2021 16:07:37 08/19/19 22 08/19/2021 COMPR EHENS EDWIN METAB OLIC PANEL potassium 4.3 mEq/L 3.5-5. 1 normal Not Available [address] [place] [address], 99510, 08/19/2021 16:07:37 08/19/19 22 08/19/2021 COMPR EHENS EDWIN METAB OLIC PANEL chloride 107 mEq/L 98-112 normal Not Available [address] [place] [address], 06947, 08/19/2021 16:07:37 08/19/19 22 08/19/2021 COMPR EHENS EDWIN METAB OLIC PANEL carbon dioxide 26 mEq/L 20-32 normal Not Available [address] [place] [address] [place] [address], 03394, 08/19/2021 16:07:37 08/19/19 22 08/19/2021 COMPR EHENS EDWIN METAB OLIC PANEL anion gap 7 mEq/L 5-15 normal Not Available [address] [place] [address] [place] [address], 71240, 08/19/2021 16:07:37 08/19/19 22 08/19/2021 COMPR EHENS EDWIN METAB OLIC PANEL blood urea nitrogen (BUN) 17 mg/dL 6-23 normal Not Available [address] [place] [address] [place] [address], 32197, 08/19/2021 16:07:37 08/19/19 22 08/19/2021 COMPR EHENS EDWIN METAB OLIC PANEL creatinine 1.00 mg/dL 0.00-1 .30 normal Not Available [address] [place] [address], 15999, 08/19/2021 16:07:37 08/19/19 22 08/19/2021 COMPR EHENS EDWIN METAB OLIC PANEL est.glomerul ar filtration rate > 60 Units : mL/mi n/1.7 3 m2 Estim ated GFR (eGFR ) shoul d not be used for patie nts with acute kidne y injur y or ESRD (crea tinin e shoul d be at stead y state and stabl e to use). eGFR is calcu lated using the 2009 CKD-E PI creat inine equat ion, which is now the recom lin d equat ion to estim ate GFR based on creat inine per lates t KDIGO (Kidn ey Disea se Impro ving Globa l Outco mes) Guide lines . KDIGO recom mends CKD now be class ified based on cause , GFR categ ory, and album inuri a categ ory. GFR categ ories will not be repor perry by the lab for G1 or G2 (eGFR >60). GFR categ ories shoul d be assig selena as: eGFR 45-59 = G3a (mild ly to moder ately decre ased) , eGFR 30-44 = G3b (mode ratel y to sever paulina decre ased) , eGFR 15-29 G4 (natasha rely decre ased) , eGFR< 15 G5 (kidn ey failu re). Not Available [address] [place] [address], 59314, 08/19/2021 16:07:37 08/19/19 22 08/19/2021 COMPR EHENS EDWIN METAB OLIC PANEL glucose 100 mg/dL 70-100 normal Fasti ng Refer ence Inter barbara: 70-10 0mg/d L Non-f astin g Refer ence Inter barbara: 70-14 0mg/d L Not Available [address] [place] [address] Draw[address] [place] [address], 93710, 08/19/2021 16:07:37 08/19/19 22 08/19/2021 COMPR EHENS EDWIN METAB OLIC PANEL calcium 10.0 mg/dL 8.1-10 .4 normal Not Available [address] [place] [address], 03176, 08/19/2021 16:07:37 08/19/19 22 08/19/2021 COMPR EHENS EDWIN METAB OLIC PANEL bilirubin total 0.6 mg/dL 0.2-1. 3 normal Not Available [address] [place] [address], 47137, 08/19/2021 16:07:37 08/19/19 22 08/19/2021 COMPR EHENS EDWIN METAB OLIC PANEL aspartate amino transferase 23 IU/L 15-37 normal Not Available [address] [place] [address], 44449, 08/19/2021 16:07:37 08/19/19 22 08/19/2021 COMPR EHENS EDWIN METAB OLIC PANEL alanine aminotransfe rase 58 IU/L 16-61 normal Not Available [address] [place] [address] [place] [address], 98745, 08/19/2021 16:07:37 08/19/19 22 08/19/2021 COMPR EHENS EDWIN METAB OLIC PANEL total protein 7.6 g/dL 6.1-8. 2 normal Not Available [address] [place] [address], 43463, 08/19/2021 16:07:37 08/19/19 22 08/19/2021 COMPR EHENS EDWIN METAB OLIC PANEL albumin 4.6 g/dL 2.9-4. 7 normal Not Available [address] [place] [address], 25655, 08/19/2021 16:07:37 08/19/19 22 08/19/2021 COMPR EHENS EDWIN METAB OLIC PANEL alkaline phosphatase 113 IU/L 18-210 normal Not Available [address] [place] [address], 10746, 08/19/2021 16:07:37 08/19/19 22 08/19/2021 LIPID PANEL triglyceride s 112 mg/dL normal Lilian l <=150 Lilian l 150-1 99 Borde rline High 200-4 99 High >=500 Very High Not Available [address] [place] [address], 61431, 08/19/2021 16:07:38 08/19/19 22 08/19/2021 LIPID PANEL cholesterol 168 mg/dL normal Jael able <200 Jael able 200-2 39 Borde rline High >=240 High Not Available [address] [place] [address], 92368, 08/19/2021 16:07:38 08/19/19 22 08/19/2021 LIPID PANEL LDL cholesterol calculated 87 mg/dL normal Optim al <100 Optim al 100-1 29 Near optim al 130-1 59 Borde rline High 160-1 89 High >=190 Very High Not Available [address] [place] [address], 56963, 08/19/2021 16:07:38 08/19/19 22 08/19/2021 LIPID PANEL HDL cholesterol 59 mg/dL normal <40 Low >=60 Optim al Not Available [address] [place] [address], 72979, 08/19/2021 16:07:38 08/19/19 22 08/19/2021 THYRO ID STIMU LATIN G HORMO NE thyroid stimulating hormone 0.97 uIU/m L 0.36-3 .74 normal Not Available [address] [place] [address], 22640, 08/19/2021 16:07:38 04/27/20 20 04/27/2020 MRI, cervi kojo spine , w/o contr ast [facility] [place] [address] Magnet ic Resona nce Report Signed Patien t: Js Ross 3254 : [address]: Radha coronel EMR ID: [id number] Age/Se x: 60/M E.D. Attend ing: Acct: [id number] Loc: RAD.NA PCP: Radha coronel MD Admit/ Svc Date: Orderi ng Physic adam: Radha coronel MD Date of Servic e: Proced ure(s) : MR cervic al spine wo con Reason for Exam: parast hesia of upper limb/ right sided C5 or T1 pa Access ion Number (s): [id number] Fax to: cc: Radha coronel MD MRI OF THE CERVIC AL SPINE WITHOU T CONTRA ST. 2019 3:18 PM HISTOR Y: 60 years Male with parast hesia of upper limb/ right sided C5 or T1 pa COMPAR ALVA: None TECHNI QUE: T1 and T2 sagitt al; axial T2 FIESTA and GRE. Sagitt al STIR FINDIN GS: CRANIO CERVIC AL JUNCTI ON: Normal . C1- C2 alignm ent is normal . The tonsil s are in normal locati on. ALIGNM ENT: Normal . BONES/ MARROW : No acute fractu re or suspic ious marrow replac ing lesion . Mild discog enic sclero sis across C5-C6 and C6-C7. SPINAL CORD: Normal in signal . No eviden ce of cord compre ssion. DISCS/ FACET JOINTS : Mild degene artive change s. There is decrea sed disc space height at C5-C6. Degene rative change s by level: C2-C3: Unrema rkable C3-C4: Small track inspector ior disc osteop hyte comple x effaci ng the ventra l subara chnoid space. Mild compro mise of the forami na. C4-C5: Unrema rkable C5-C6: Broad- based track inspector ior discal spur comple x causin g mild spinal stenos is. Mild flatte jeffrey of the cord withou t cord compre ssion. There is mild compro mise of the forami na bilate rally. C6-C7: Mild degene rative disc change s with mild compro mise of right sided forame n. Mild efface ment of the ventra l subara chnoid space. Normal cervic al cord. C7-T1: Unrema rkable PREVER TEBRAL SOFT TISSUE S: Normal IMPRES YAEL: There is degene rative change s of the C5-C6 disc with a small broad- based discal spur comple x causin g mild flatte jeffrey of the cord and mild spinal stenos is. Bilate ral forami nal compro mise. Mild degene rative change s of the C6-C7 disc with mild compro mise of the right- sided forame n. Mild compro mise of the forami na at C3-C4 with a track inspector ior disc osteop hyte comple x not reachi ng the cord. No eviden ce of cord compre ssion. Statio n: [id number] Docume nted by: Chacha Howard i, MD 1557 ACONNO RS [email or web address] [facility] (Radiology) [address] [place] [address], 41016, 05/21/2020 08:51:59 09/19/19 21 09/18/2020 XR, shoul bruna, 2 or more view [facility] [place] [address] X-Ray Report Signed Patien t: Js Ross 3254 : [address]: Radha coronel EMR ID: [id number] Age/Se x: 60/M E.D. Attend ing: Acct: [id number] Loc: RAD.NA PCP: Radha coronel MD Admit/ Svc Date: Orderi ng Physic adam: Radha coronel MD Date of Servic e: Proced ure(s) : XR should er RT 3V Reason for Exam: Right should er pain Access ion Number (s): [id number] Fax to: cc: Radha coronel MD RIGHT SHOULD ER, THREE VIEWS 021 10:45 AM Findin gs: Mild AC joint hypert rophic change s. Mild degene rative change s of the inferi or glenoh umeral joint. . No fractu re or disloc ation. The visual ized ribs and lung field are normal . Statio n: [id number] Electr onical ly signed on at 1505 by Cindy Álvarez MD. S-ABUL GUCCI [email or web address] [facility] (Radiology) [address] [place] [address], 33803, 10/09/2020 15:51:19 02/26/20 21 02/25/2021 MRI, shiv mcfarland, w/o contr ast [facility] [place] [address] Magnet ic Resona nce Report Signed Patien t: Js Ross 3254 : [address]: Vilma STOKES EMR ID: [id number] Age/Se x: 61/M E.D. Attend ing: Acct: [id number] Loc: RAD.NA PCP: DIVYA Head Admit/ Svc Date: Orderi ng Physic adam: DIVYA Head Date of Servic e: Proced ure(s) : MR should er RT wo con Reason for Exam: right should er pain Access ion Number (s): [id number] Fax to: cc: DIVYA Head MRI RIGHT SHOULD ER, 021 7:25 AM COMPAR ALVA: None TECHNI QUE: Multip lanar multis equenc e MR images of the right should er were obtain ed withou t intrav enous gadoli nium. FINDIN GS: IMAGE QUALIT Y: Satisf actory . ACROMI OCLAVI CULAR JOINT: Hypert rophic change s in the AC joint with inferi or spurs, no signif icant imping ement. No signif icant fluid in the subacr omial bursa. ROTATO R CUFF: Mild tendin opathy /tendi nitis of the supras pinatu s infras pinatu s, no discre te tear. The subsca pulari s tendon is intact . BICEPS TENDON : Long head biceps tendon intact withou t sublux ation or tendin opathy . GLENOI D LABRUM : Surfac e frayin g/nond isplac ed tear of the track inspector ior labrum at its juncti on with the capsul e, with capsul ar defect due to tear and adjace nt soft tissue edema. Mild degene rative ossifi cation of the base of the anteri or and track inspector ior labrum . No other signif icant labral tear. BONES: Small subcor tical cystic foci in the track inspector ior aspect of the greate r tubero sity. LIGAME NTS: Marked thicke jeffrey with edema of the inferi or glenoh umeral ligame nt, underl albert tear not exclud ed. OTHER: No signif icant muscle atroph y. ___ CONCLU YAEL: Mild tendin opathy /tendi nitis of the supras pinatu s, no discre te rotato r cuff tear. Marked arthro marisela of the AC joint, no signif icant imping ement. Surfac e frayin g/nond isplac ed tear of the track inspector ior labrum with tear of the adjace nt track inspector ior joint capsul e. Marked thicke jeffrey with edema of the inferi or glenoh umeral ligame nt, underl albert tear not exclud ed. Statio n: [id number] Electr onical ly signed on at 1133 by Jong Nesbitt MD. GDEMO [email or web address] [facility] (Radiology) [address] [place] [address], 53549, 07/26/2021 11:59:47 Result Notes Documentation Provider Name and Address Organization Details Recorded Time Mri, Cervical Spine, W/o Contrast : [facility] [place] [address] Magnetic Resonance Report Signed Patient: Js Ross : [address]: Radha Baer EMR ID: [id number] Age/Sex: 60/M E.D. Attending: Acct: [id number] Loc: RAD.NA PCP: Radha Baer MD Admit/Svc Date: 04/27/20 Ordering Physician: Radha Baer MD Date of Service: 04/27/20 Procedure(s): MR cervical spine wo con Reason for Exam: parasthesia of upper limb/ right sided C5 or T1 pa Accession Number(s): [id number] Fax to: cc: Radha Baer MD MRI OF THE CERVICAL SPINE WITHOUT CONTRAST. 04/27/2020 3:18 PM HISTORY: 60 years Male with parasthesia of upper limb/ right sided C5 or T1 pa COMPARISON: None TECHNIQUE: T1 and T2 sagittal; axial T2 FIESTA and GRE. Sagittal STIR FINDINGS: CRANIOCERVICAL JUNCTION: Normal. C1- C2 alignment is normal. The tonsils are in normal location. ALIGNMENT: Normal. BONES/MARROW: No acute fracture or suspicious marrow replacing lesion. Mild discogenic sclerosis across C5-C6 and C6-C7. SPINAL CORD: Normal in signal. No evidence of cord compression. DISCS/FACET JOINTS: Mild degeneartive changes. There is decreased disc space height at C5-C6. Degenerative changes by level: C2-C3: Unremarkable C3-C4: Small posterior disc osteophyte complex effacing the ventral subarachnoid space. Mild compromise of the foramina. C4-C5: Unremarkable C5-C6: Broad-based posterior discal spur complex causing mild spinal stenosis. Mild flattening of the cord without cord compression. There is mild compromise of the foramina bilaterally. C6-C7: Mild degenerative disc changes with mild compromise of right sided foramen. Mild effacement of the ventral subarachnoid space. Normal cervical cord. C7-T1: Unremarkable PREVERTEBRAL SOFT TISSUES: Normal IMPRESSION: There is degenerative changes of the C5-C6 disc with a small broad-based discal spur complex causing mild flattening of the cord and mild spinal stenosis. Bilateral foraminal compromise. Mild degenerative changes of the C6-C7 disc with mild compromise of the right-sided foramen. Mild compromise of the foramina at C3-C4 with a posterior disc osteophyte complex not reaching the cord. No evidence of cord compression. Station: [id number] Documented by: Lenny Teresa MD 04/27/20 1557 [facility] Radha Baer MD [address] [place] [address], [id number], [facility] 05/21/2020 08:51:59 Xr, Shoulder, 2 Or More View : [facility] [place] [address] X-Ray Report Signed Patient: Js Ross : [address]: Radha Baer EMR ID: [id number] Age/Sex: 60/M E.D. Attending: Acct: [id number] Loc: RAD.NA PCP: Radha Baer MD Admit/Svc Date: 09/18/20 Ordering Physician: Radha Baer MD Date of Service: 09/18/20 Procedure(s): XR shoulder RT 3V Reason for Exam: Right shoulder pain Accession Number(s): [id number] Fax to: cc: Radha Baer MD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
--- OUTSIDE RECORDS SUMMARY | 2025-05-29 13:12 | XMS_ITS ---
Author Name [facility] Organization Unknown Care Team Organization Name Specialty Phone Email Start Date End Da te [facility]CO 02/15/2025 [facility] NULL Primary Care 01/14/2024 2024 [facility] NULL Primary Care 12/05/2022 02/15/2024
--- OUTSIDE RECORDS SUMMARY | 2025-05-29 13:12 | XMS_ITS | Encounter Summary ---
Author Organization [facility] Address [address] [place] [address] Care Team Providers Care Re Examiner Name Role Phone Adeel Yeh MD Primary Care Provider [phone] Encounter Details Date Type Department Care Team ([facility] Contact Info) Description 05/02/2025 Results Follow-Up Internal Medicine - [place] [address] [facility] [address] [place] [phone] Adeel Yeh MD [address] [place] [phone] Social History Tobacco Use Types Packs/Day Years Used Date Smoking Tobacco: Every Day Cigarettes 1 55.9 Started: 1968 Alcohol Use Standard Drinks/Week Comments Not Currently [...] your loved ones. For example, early childhood special educator or elderly care for an older adult? [...] Info) Description 06/17/2025 8:00 AM EST Appointment [facility] CT Scan [address] [place] [address] documented as of this encounter Visit Diagnoses Not on filedocumented in this encounter Additional Health Concerns Assessment Noted Time PHQ-9 Depression Total Score: 0 04/28/20 25 10:12 AM EDT A fall risk assessment has been complete d for the patient 04/28/2025 10:11 AM EDT documented as of this encounter Care Teams Re Examiner Relationship Specialty Start Date End Date Adeel Yeh MD [address] [place] [phone] PCP - General 07/24/23 documented as of this encounter
== END 2025-05-29 11:56 | disposition home or self-care (01) ==
LOC: HO.HPHYS 10:27
PROVIDERS: PCP Student in an Organized Health Care Education/Training Program; Visit Provider Physician Assistant
DX: M54.81 Occipital neuralgia (principal); M25.812 Other specified joint disorders, left shoulder; M54.2 Cervicalgia
CPT/HCPCS: 99213

== ENCOUNTER → 2025-05-29 10:27 | Outpatient (BNVA) | payer MEDICARE, MEDICAID, SELFPAY | PROVIDERS: PCP Student in an Organized Health Care Education/Training Program; Visit Provider Physician Assistant | DX: M54.81 Occipital neuralgia (principal); M25.812 Other specified joint disorders, left shoulder; M54.2 Cervicalgia | CPT/HCPCS: 99212 ==

== ENCOUNTER 2025-06-05 10:36 | Day surgery (SDC) | payer MEDICARE, MEDICAID, SELFPAY ==
[2025-06-01 12:11] VITALS: BMI 21.0
--- NOTE | 2025-06-02 12:13 | P.CONAN_ITS ---
Documented by User: Yenny Ramirez NP 06/02/25 12:23 HPI - Anesthesia Eval Consult details Narrative: 65 yr old male for left ?C3-4,C4-5,C5-6 Cervical Facet Injection CAD: s/p stent 2016; on isosorbide; has not seen cardiology since 2022, echo from 2022 below; TC pt 06/02/25, no CP or chest pressure, some SOB with exertion attributes to smoking; he does moderate physical activity without any symptoms. COPD: current smoker; no inhaler use H/O lung nodules, pneumothorax: s/p partial lobectomy in 1981; follows with thoracic surgery annually. [facility] Active Problems Active Problems: All Active Problems Cervicalgia (Acute) Impingement of left shoulder (Acute) Occipital neuritis (Acute) Past Medical History Medical History Colon polyps Personal history of alcoholism Nicotine dependence Insomnia Hyperlipidemia Hx of substance abuse Degenerative disc disease, thoracic PTSD (post-traumatic stress disorder) Depression Bone lesion Current smoker CAD (coronary artery disease) Surgical History Surgical History Hx of surgical amputation of finger History of coronary artery stent placement (~2016) S/P partial lobectomy of lung Social History Social History Alcohol intake: current Alcohol intake frequency: does not drink Patient Tobacco Use Status: Current everyday Tobacco user Advance Directives: No Advance Directives Information Provided: Yes Meds Allergies Allergy/AdvReac Type Severity Reaction Status Date / Time No Known Allergies Allergy Verified 05/29/25 10:41 Home Medications ?Medication ?Instructions ?Recorded ?Confirmed ?Last Taken ?Type cyclobenzaprine 10 mg tablet 10 mg PO TID PRN muscle s pasm 05/22/25 06/01/25 Unknown History isosorbide mononitrate 30 mg 30 mg PO DAILY 05/22/25 1 08/02/24 Unknown History tablet,extended release 24 hr rosuvastatin 40 mg tablet 40 mg PO DAILY 05/22/25 12/10/21 Unknown History varenicline tartrate 0.5 mg (11)-1 ea PO 05/22/25 Unk nown History mg (42) tablets in a dose pack aspirin 81 mg tablet,delayed 81 mg PO DAILY 06/01/25 1 08/02/24 Unknown History release nitroglycerin 0.4 mg sublingual 0.4 mg sublingual D IRECTED 06/01/25 06/01/25 Unknown History tablet Exam Height,Weight and Vital Signs: Height 6 ft Weight 70.307 kg Narrative Narrative: ECHO 2022 Normal left ventricular chamber size. Normal left ventricular wall thickness. Normal regional wall motion. Normal left ventricular systolic function. Left ventrciular EF 55-60%. Normal right ventricular size and function. Mild mitral regurgitation. Mild tricuspid regurgitation. Documented by User: Brittani Munroe MD 06/05/25 10:48 PMFSH Past Medical History Medical History Colon polyps Personal history of alcoholism Nicotine dependence Insomnia Hyperlipidemia Hx of substance abuse Degenerative disc disease, thoracic PTSD (post-traumatic stress disorder) Depression Bone lesion Current smoker CAD (coronary artery disease) Family History Family history of problems with anesthesia: No Surgical History Surgical History Hx of surgical amputation of finger History of coronary artery stent placement (~2016) S/P partial lobectomy of lung History of Problems with Anesthesia: No Social History Social History Alcohol intake: current Alcohol intake frequency: does not drink Patient Tobacco Use Status: Current everyday Tobacco user Advance Directives: No Advance Directives Information Provided: Yes Meds Allergies Allergy/AdvReac Type Severity Reaction Status Date / Time No Known Allergies Allergy Verified 05/29/25 10:41 Home Medications ?Medication ?Instructions ?Recorded ?Confirmed ?Last Taken ?Type cyclobenzaprine 10 mg tablet 10 mg PO TID PRN muscle s pasm 05/22/25 06/01/25 Unknown History isosorbide mononitrate 30 mg 30 mg PO DAILY 05/22/25 1 08/02/24 Unknown History tablet,extended release 24 hr rosuvastatin 40 mg tablet 40 mg PO DAILY 05/22/2510/21 Unknown History varenicline tartrate 0.5 mg (11)-1 ea PO 05/22/25 Unk nown History mg (42) tablets in a dose pack aspirin 81 mg tablet,delayed 81 mg PO DAILY 06/01/25 1 08/02/24 Unknown History release nitroglycerin 0.4 mg sublingual 0.4 mg sublingual D IRECTED 06/01/25 06/01/25 Unknown History tablet Exam Airway Mallampati Class: II TM Dist: >3cm Neck ROM: Full Heart: rrr Lungs: cta Assessment and Plan Assessment Anesthesia Assessment: Anesthesia Plan Discussed and Chart Reviewed Final Anesthetic Review Family History of Problems with Anesthesia: No History of Problems with Anesthesia: No NPO: Yes ASA Class: III Final Preanesthetic Review: No Changes in Pt Med Stat, Meds/Allgs Chart Reviewed, Consent Obtained/Reviewed and Anes Risks/Benef Reviewed Patient Risk: Intermediate Procedure Risk: Low Anesthetic Plan Anesthetic Plan: MAC: Disposition: Standard PACU
--- NOTE | ~2025-06-05 | FL_ITS ---
EXAMINATION: FL GUIDANCE ONLY HISTORY: Procedural guidance COMPARISON: None available. TECHNIQUE: Fluoroscopy time: 27 seconds. Cumulative Dose: 5.20 mGy. DAP: 1086.30 mGycm2 Images: 4. FINDINGS: Fluoroscopic spot films of the cervical spine demonstrate a needle in place and contrast material within multiple facet joints. FL/FL guidance in OR IMPRESSION: Fluoroscopy during procedure. Please see procedure report for additional information. Electronically signed by: Js Baez MD 06/05/2025 02:46 PM EST
[2025-06-05 10:51] VITALS: BMI 20.3
[2025-06-05 10:58] VITALS: BP 109/63; PULSE 67; RESP 12; TEMP 36.1; O2SAT 99
[2025-06-05] MEDS: Lactated Ringers 1,000 ML 100 ML IVCONT (11:19)
--- NOTE | 2025-06-05 11:28 | MHC.SHP ---
Pre-Procedural Eval Section A - 24 Hr Update-Section A only Date of Service: 06/05/25 The patient is an INPATIENT: No The patient has been examined within 24 hours of the surgical procedure. The History & Physical has been completed within 30 days and I have reviewed it.: Yes Section B - Complete if H&P > 30 days Chief Complaint: Cervicalgia Allergies: Allergies Allergy/AdvReac Type Severity Reaction Status Date / Time No Known Allergies Allergy Verified 06/05/25 10:50 Plan I have reviewed the history and physical and performed a pertinent physical examination on my patient. No changes have occurred unless specified. Time Spent With Patient Time: Total time managing care of this patient today ____ minutes.
--- NOTE | 2025-06-05 12:02 | W.PM.OPN ---
Operative Note Operative Note Date of Service: 06/05/25 Narrative: Procedure performed: Left C3-C4, C4-C5, C5-C6 facet joint injections Preop diagnosis: Cervical facet arthropathy Postop diagnosis: The same Anesthesia: Mac After informed consent was obtained, patient was brought into the procedure room and placed in the prone position on the procedure table. Skin over posterior aspect of the neck was prepped and draped in usual sterile manner. The facet joints indicated above were visualized utilizing fluoroscopy. For each joint 3.5 in 22 gauge spinal needle was introduced percutaneously and advanced to enter the joint cavity. Needle placement was verified utilizing 0.2 cc of Omnipaque contrast solution. Each joint received 1 cc of therapeutic solution containing 20 mg of triamcinolone and 2% lidocaine. Radiation exposure was reported and documented in the chart.
[2025-06-05 12:06] VITALS: BP 99/58; PULSE 80; RESP 18; TEMP 36.4; O2SAT 95
[2025-06-05 12:21] VITALS: BP 103/55; PULSE 79; RESP 13; TEMP 36.3; O2SAT 97
== END 2025-06-05 12:35 | disposition home or self-care (01) ==
PROVIDERS: PCP Student in an Organized Health Care Education/Training Program; Visit Provider Physical Medicine & Rehabilitation
PROC: (CPT 64490; principal; 2025-06-05 12:30)
DX: M54.2 Cervicalgia (principal); M47.892 Other spondylosis, cervical region; M54.81 Occipital neuralgia; M25.812 Other specified joint disorders, left shoulder; I25.10 Atherosclerotic heart disease of native coronary artery without angina pectoris; Z95.5 Presence of coronary angioplasty implant and graft; E78.5 Hyperlipidemia, unspecified; Z90.2 Acquired absence of lung [part of]; Z79.82 Long term (current) use of aspirin; Z79.899 Other long term (current) drug therapy; F17.210 Nicotine dependence, cigarettes, uncomplicated
CPT/HCPCS: 64490; 64491; 64492; J2003; J2250; J2704; J3301; Q9967

== ENCOUNTER → 2025-06-05 10:36 | Outpatient (BNV) | payer MEDICARE, MEDICAID, SELFPAY | PROVIDERS: PCP Student in an Organized Health Care Education/Training Program; Visit Provider Physical Medicine & Rehabilitation | DX: M47.812 Spondylosis without myelopathy or radiculopathy, cervical region (principal) | CPT/HCPCS: 64490; 64491; 64492 ==

== ENCOUNTER 2025-06-28 10:44 | Outpatient (AMB) | payer MEDICARE, MEDICAID, SELFPAY ==
--- OUTSIDE RECORDS SUMMARY | 2024-03-29 11:53 | XMS_ITS | Encounter Summary ---
Author Organization [email or web address] Address [address] [place] [address] Care Team Providers Care Sewage Treatment Plant Operator Name Role Phone Adeel Yhe MD Primary Care Provider [phone] Encounter Details Date Type Department Care Team (Late st Contact Info) Description 03/29/2024 12:53 PM EDT Hospital Encounter TH HISTORIC ENCOUNTERS EASTERN CONVERSION ONLY Tegan Marie PA [address] [place] [address] Social History Tobacco Use Types Packs/Day Years Used Date Smoking Tobacco: Every Day Cigarettes 1 56 Started: 1970 Passive Smoke Exposure: Current Smokeless Tobacco: Never Alcohol Use Standard Drinks/Week Comments Not Currently 0 (1 standard drink = 0.6 oz pur e alcohol) Housing Instability Answer Date Recorde d Are you worried that in the next 2 months you may not have stable housing? No 04/21/2025 Food Access & Nutrition Answer Date Rec orded Do you have access to a vari ety of food including fruits and vegetables? Yes 04/21/2025 Access to Healthcare Answer Date Record ed Within the last 3 months, ho w many times did you visit the emergency department for your medical care? 0 04/21/2025 Health Literacy Answer Date Recorded How often do you need to hav e someone help you when you read instructions, pamphlets, or other written material from your doctor or pharmacy? Never 04/21/2025 Caregiver: How often do you need to have someone help you when you read instructions, pamphlets, or other written material from your doctor or pharmacy? Not on file 04/21/2025 Financial Risk Answer Date Recorded How hard is it for you to pa y for the very basics like food, housing, medical care, and air conditioning / heating? Not very hard 04/21/2025 Transportation Answer Date Recorded Has the lack of transportati on kept you from meetings, work, or from getting things needed for daily living? No Has the lack of transportati on kept you from medical appointments or from getting medications? No 04/21/2025 Social Isolation Answer Date Recorded How often do you feel lonely or isolated from ose around you? Rarely 04/21/2025 Food Risk Answer Date Recorded Within the past 12 months we worried whether our food would run out before we got money to buy more. Never true 04/21/2025 Within the past 12 months th e food we bought just didn't last and we didn't have money to get more. Never true 04/21/2025 Dependent Care Answer Date Recorded Do you need help finding or paying for care for your loved ones. For example, children's institution attendant or elderly care for an older adult? No 04/21/2025 Education Answer Date Recorded Do you think completing more education or training, like finishing a GED, going to college, or learning a trade, would be helpful for you? No 04/21/2025 Employment and Income Answer Date Recor ded During the last four weeks, have you been actively looking for work? No 04/21/2025 Living Situation Answer Date Recorded What is your living situation? Unrecognized valu e 04/21/2025 Sex and Gender Information Value Date Recorded Sex Assigned at Male 06/16/2024 11:01 AM EST Legal Sex Male 9:56 AM EST Gender Identity Male 06/16/2024 11:01 AM EST Sexual Orientation Not on file documented as of this encounter Last Filed Vital Signs Vital Sign Reading Time Taken Comments Blood Pressure 117/58 03/29/2024 1:01 PM EDT Pulse 89 03/29/2024 1:01 PM EDT Temperature - - Respiratory Rate - - Oxygen Saturation - - Inhaled Oxygen Concentration - - Weight 69.4 kg (153 lb) 03/29/2024 1:01 PM EDT Height 182.9 cm (6') 03/29/2024 1:01 PM EDT Body Mass Index 20.75 03/29/2024 1:01 PM EDT documented in this encounter Progress Notes * MALA Alexander - 03/29/2024 1:[address] Adeel Yeh, Thank you very much for referring this patient for consultation. HPI: 64-year-old male who was referred to our hematology clinic by PCP team for further evaluation of leukocytosis[facility], WBC elevation has been appreciated since then with a single normal value earlier this year. WBC has oscillated between 11.1 and 15.4. Most recent level is 11.8, with mild neutrophil count elevation at 8.02 with normal monocyte and lymphocyte counts. RBC is mildly low at 4.4 with normal H&H. MCV is borderline elevated at 98.2. Platelet count isnormal. He has normal renal, liver, and thyroid functions. No evidence of B12 deficiency back in July. Hepatitis C was negative earlier this year. 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 S He smokes 1 pack/day. He already participate in LDCT program through [facility] but he is transitioning to [facility], his next LDCT is coming up this month. He snores only if sleeps on his back. 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 He takes Tylenol as needed sporadic. He has had steroid injection in his shoulder x 3,last one about 6 months ago. He denies fatigue, unintentional weight loss, night sweats, fever or chills, frequent infections, swollen glands. He has denies any clinical bleeding or black stools. He has no medical complaints at this time. ROS: GENERAL: No malaise, significant weight loss or fever NECK: No lumps, goiter, pain or significant neck swelling RESPIRATORY: No cough, wheezing or shortness of breath CARDIOVASCULAR: No chest pain, leg swelling or palpitations GI: No abdominal discomfort, blood in stools or black stools MUSCULOSKELETAL: No joint pain or swelling, back pain, or muscle pain. HEMATOLOGY/LYMPHOLOGY No prolonged bleeding, easy bruisability or swollen nodes Other Systems review is non contributory PAST MEDICAL HISTORY: Active Ambulatory Problems Diagnosis Date Noted ??? No Active Ambulatory Problems Resolved Ambulatory Problems Diagnosis Date Noted ??? No Resolved Ambulatory Problems No Additional Past Medical History ??? Chronic post-traumatic stress disorder (PTSD) [F43.12] 06/24/2018 ??? Insomnia [G47.00] 06/24/2018 ??? CAD (coronary artery disease) [I25.10] 06/24/2018 ??? Chronic depression [F32.A] 06/24/2018 ??? Personal history of alcoholism (HCC) [F10.21] 06/24/2018 ??? 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 Hyperlipidemia [E78.5] 06/24/2018 ??? Nicotine dependence [F17.200] 06/24/2018 ??? 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 Colon polyps [K63.5] 06/24/2018 PAST SURGICAL HISTORY: History reviewed. No pertinent surgical history. partial amputation of thumb ??? REMOVAL OF LUNG LOBE/LESI ??? STENT, CORONARY, SOHAM 2016 SOCIAL HISTORY: Social History Tobacco Use ??? Smoking status: Every Day Types: Cigarettes ??? Smokeless tobacco: Not on file ??? Tobacco comments: Smokes 1 ppd Substance Use Topics ??? Alcohol use: Not Currently Comment: Hx of heavy; no alcohol since May 2010 He lives with his GF and son. FAMILY HISTORY: Family History Problem Relation Age of Onset ??? Ovarian cancer Mother ??? Lymphoma Father MEDICATIONS: Current Outpatient Medications: ??? aspirin EC 81 MG tablet, Take 1 tablet (81 mg total) by mouth daily., Disp: , Rfl: ??? Cholecalciferol (Vitamin D) 50 MCG (2000 UT) tablet, Take 2,000 Units by mouth daily., Disp: , Rfl: ??? cyclobenzaprine (FLEXERIL) 10 MG tablet, Take 1 tablet (10 mg total) by mouth 3 (three) times aday as needed for muscle spasms., Disp: , Rfl: ??? isosorbide dinitrate (ISORDIL) 30 MG tablet, Take 1 tablet (30 mg total) by mouth 4 (four) times a day., Disp: , Rfl: ??? rosuvastatin (CRESTOR) tablet 40 mg, Take 1 tablet (40 mg total) by mouth daily., Disp: , Rfl: You are allergic to the following Date Reviewed: 03/29/2024 No active allergies PHYSICAL EXAM: BP 117/58 Pulse 89 Temp 97.1 ??F (36.2 ??C) Ht 6' (1.829 m) Wt 69.4 kg (153 lb) SpO2 98% BMI 20.75 kg/m?? APPEARANCE: Alert and in no acute distress EYES: PERRL, conjunctiva pink and sclera are Normal without icterus ORAL CAVITY: No erythema or exudates NECK: Neck supple, no adenopathy, HEART: RRR with normal S1 and S2, no murmurs, no gallops, no JVD appreciated LUNG: clear to auscultation bilaterally LYMPH NODES: No palpable superficial adenopathy ABDOMEN: Bowel sounds normoactive, no bruits, soft, non-tender, without organomegaly or palpable masses EXTREMITIES: Extremities warm and well perfused without clubbing, cyanosis, rash or edema NEURO: Oriented X 3, no focal weakness; sensation is normal LABS: Due to technical issues, I'm unable to copy and past test results: 02/01/2024 WBC 11.8 RBC 4.4 Hemoglobin 14.3 Hematocrit 43.6 MCV 98.2 Platelet 236 Neutrophil # 8.02 Lymph # 2.71 Kings 0.78 BUN 16 Creatinine 0.87 GFR 98 Total bili 0.3 AST 21 ALT 41 ALK 113 Total protein 6.4 Albumin 4.3 TSH 0.48 08/19/23 B12 852 Testing: Review of Lab results , interpreted Review of Imaging, interpreted Review of External Documentation Tests ordered - CBCd, reticulocyte count, iron studies, B12/folate, EPO, LDH, haptoglobin, BCR/abl (PCR) ASSESSMENT SNOMED CT(R) 1. Leukocytosis LEUKOCYTOSIS 2. Tobacco use disorder TOBACCO USER PLAN: Leukocytosis: -Chronic -NOT progressive -WBC elevation has been appreciated since 2018 with a single normal value earlier this year -WBC has oscillated between 11.1 and 15.4. Most recent level is 11.8, with mild neutrophil count elevation at 8.02 with normal monocyte and lymphocyte counts -Smoking can cause leukocytosis as well as chronic inflammation. He does have chronic neck, shoulder, and back pain -He has received steroid injections in his shoulder x 3 (last time ~ 6 months ago), which could account for spikes in wbc elevation -NO frequent infections -No constitutional symptoms -Check CBCd + BCR/abl (PCR) test -FOV in 2 weeks to review results Tobacco use disorder: -Counseled about smoking cessation -He has been trying to cut back, he has nicotine patch script at home and he has been using a watervaping -He already participates in LDCT; next screening CT will be this month (hx of benign lung nodule) Tegan Marie PA-C Cc: Adeel Yeh MD Sign: Tegan Marie PA-C Hematology/Oncology [facility] [phone] documented in this encounter Plan of Treatment Not on file documented as of this encounter Procedures Procedure Name Priority Date/Time Associated Diagnosis Comments ..MISCELLANEOUS REFERENCE LAB TEST 03/29/2024 documented in this encounter Results * Miscellaneous reference lab test (03/29/2024) us Provider Onbase LAB BLOOD ORDERABLES Final Re sult documented in this encounter Visit Diagnoses Not on filedocumented in this encounter Care Teams Sewage Treatment Plant Operator Relationship Specialty Start Date End Date Adeel Yeh MD [address] [place] [phone] PCP - General 07/24/23 documented as of this encounter
--- OUTSIDE RECORDS SUMMARY | 2024-03-29 12:00 | XMS_ITS | Encounter Summary ---
Author Organization [employer] Address [address] [place] [address] Care Team Providers Care Cherry Grower Name Role Phone Adeel Yeh MD Primary Care Provider [phone] Encounter Details Date Type Department Care Team (Late st Contact Info) Description 03/29/2024 1:00 PM EDT Hospital Encounter TH HISTORIC ENCOUNTERS EASTERN CONVERSION ONLY Tegan Marie PA [address] [place] [address] Social History Tobacco Use Types Packs/Day Years [...] care for your loved ones. For example, early childhood associate teacher or elderly care for an older adult? [...] on file documented as of this encounter Plan of Treatment Not on file documented as of this encounter Visit Diagnoses Not on filedocumented in this encounter Care Teams Cherry Grower Relationship Specialty Start Date End Date Adeel Yeh MD [address] [place] [phone] PCP - General 07/24/23 documented as of this encounter
--- OUTSIDE RECORDS SUMMARY | 2024-04-14 10:16 | XMS_ITS | Encounter Summary ---
Author Organization [email or web address] Address [address] [place] [address] Care Team Providers Care Mixer Operator Vacuum Pan Salt Name Role Phone Adeel Yeh MD Primary Care Provider [phone] Encounter Details Date Type Department Care Team (Late st Contact Info) Description 04/14/2024 11:16 AM EDT Hospital Encounter TH HISTORIC ENCOUNTERS EASTERN CONVERSION ONLY Tegan Marie PA [address] [place] [address] Social History Tobacco Use Types Packs/Day Years [...] for your loved ones. For example, child care attendant school or elderly care for an older adult? [...] Sign Reading Time Taken Comments Blood Pressure 119/55 04/14/2024 11:35 AM EDT Pulse 74 04/14/2024 11:35 AM EDT Temperature - - Respiratory Rate - - Oxygen Saturation - - Inhaled Oxygen Concentration - - Weight 70.3 kg (155 lb) 04/14/2024 11:35 AM EDT Height 182.9 cm (6') 04/14/2024 11:35 AM EDT Body Mass Index 21.02 04/14/2024 11:35 AM EDT documented in this encounter Progress Notes * MALA Alexander 04/14/2024 11:30 AM EDT Images from the original note were not included. Progress Notes by Tegan Marie PA-C at 04/14/2024 11:30 AM Author: Tegan Marie PA-C Service: -- Author Type: Physician Agricultural Commodities Inspector Filed: 04/14/2024 12:50 PM Encounter Date: 04/14/2024 Status: Attested [employer] Scheduler: Tegan Marie PA-C (Physician Agricultural Commodities Inspector) Cosigner: Gisselle Tirado DO at 04/18/2024 9:[address] Adeel Yeh, Thank you very much for referring this patient for consultation. HPI: 64-year-old male who returns to our hematology clinic for follow up of leukocytosis. Patient is here to review workup obtained at last visit. His WBC count came back down to normal without any other cell line abnormalities and no anemia associated with it. Neutrophil count is only borderline elevated at 7.55 and Lymphocyte counts is normal. LDH is also normal, no nutritional deficiencies. BCR/abl test is negative. He saw GI on 04/07/24 for recent incidental finding of pancreatic cyst. Recommendation was to repeat CT scan or MRI in 1 year for surveillance. He feels generally well and has no new medical complaints. (copied from prior note for clinical reference and updated as needed) [facility] records date as far back as 2018, [...] He already participate in LDCT program through [facility] but he is transitioning to [facility], his next LDCT is coming up this month. He snores only if sleeps on his back. 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 He [...] HISTORY: Active Ambulatory Problems Diagnosis Date Noted ? No Active Ambulatory Problems Resolved Ambulatory Problems Diagnosis Date Noted ? No Resolved Ambulatory Problems No Additional Past Medical History ? Chronic post-traumatic stress disorder (PTSD) [F43.12] 06/24/2018 ? Insomnia [G47.00] 06/24/2018 ? CAD (coronary artery disease) [I25.10] 06/24/2018 ? Chronic depression [F32.A] 06/24/2018 ? Personal history of alcoholism (HCC) [F10.21] 06/24/2018 ? History of substance abuse (HCC) [F19.11] 06/24/2018 In remission since 2009 ? Hyperlipidemia [E78.5] 06/24/2018 ? Nicotine dependence [F17.200] 06/24/2018 ? 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 Colon polyps [K63.5] 06/24/2018 PAST SURGICAL HISTORY: No past surgical history on file. partial amputation of thumb ? REMOVAL OF LUNG LOBE/LESI ? STENT, CORONARY, SOHAM 2016 SOCIAL HISTORY: Social History Tobacco Use ? Smoking status: Every Day Types: Cigarettes ? Smokeless tobacco: Not on file ? Tobacco comments: Smokes 1 ppd Substance Use Topics ? Alcohol use: Not Currently Comment: Hx of heavy; no alcohol since May 2010 He lives with his GF and son. FAMILY HISTORY: Family History Problem Relation Age of Onset ? Ovarian cancer Mother ? Lymphoma Father MEDICATIONS: Current Outpatient Medications: ? aspirin EC 81 MG tablet, Take 1 tablet (81 mg total) by mouth daily., Disp: , Rfl: ? Cholecalciferol (Vitamin D) 50 MCG (2000 UT) tablet, Take 2,000 Units by mouth daily., Disp: , Rfl: ? cyclobenzaprine (FLEXERIL) 10 MG tablet, Take 1 tablet (10 mg total) by mouth 3 (three) times a day as needed for muscle spasms., Disp: , Rfl: ? isosorbide dinitrate (ISORDIL) 30 MG tablet, Take 1 tablet (30 mg total) by mouth 4 (four) times a day., Disp: , Rfl: ? rosuvastatin (CRESTOR) tablet 40 mg, Take 1 tablet (40 mg total) by mouth daily., Disp: , Rfl: You are allergic to the following Date Reviewed: 03/29/2024 No active allergies PHYSICAL EXAM: BP 119/55 Pulse 74 Temp 97.3 ??F (36.3 ??C) Ht 6' (1.829 m) Wt 70.3 kg (155 lb) SpO2 100% BMI 21.02 kg/m?? APPEARANCE: Alert and in no acute distress EYES: PERRL, conjunctiva pink and sclera are Normal without icterus ORAL CAVITY: No erythema or exudates HEART: RRR with normal S1 and S2, no murmurs, no gallops, no JVD appreciated LUNG: clear to auscultation bilaterally EXTREMITIES: Extremities warm and well perfused without clubbing, cyanosis, rash or edema NEURO: Oriented X 3, no focal weakness; sensation is normal LABS: Testing: Review of Lab results , interpreted Review of External Documentation ASSESSMENT SNOMED CT(R) 1. Leukocytosis, unspecified type LEUKOCYTOSIS 2. Tobacco use disorder TOBACCO USER 3. Pancreatic cyst CYST OF PANCREAS PLAN: Leukocytosis: -Chronic; mild -NOT progressive -WBC elevation has been appreciated since 2018 with a single normal value earlier this year -BCR/abl (PCR) test is NEGATIVE -WBC has oscillated between 11.1 and 15.4. Most recent level came back normal at 10.4, with borderline neutrophil count elevation at 7.55 with normal monocyte and lymphocyte counts -No other cell line abnormalities or anemia associated with it -Smoking can cause leukocytosis as well as chronic inflammation. He does have chronic neck, shoulder, and back pain -He has received steroid injections in his shoulder x 3 (last time ~ 6 months ago), which could account for spikes in wbc elevation -NO frequent infections -No constitutional symptoms -PCP team can monitor WBC count periodically and he may return if there is any significant change and/or if he develops persistent/significant anemia or any other blood dyscrasia associated with it. -Follow up as needed; patient agrees with this plan Tobacco use disorder: -Counseled about smoking cessation -He has been trying to cut back, he has nicotine patch script at home and he has been using a watervaping -He already participates in LDCT; next screening CT is at the end of this month (hx of benign lung nodule) Pancreatic cyst: -Followed by GI; seen on 04/07/24 -Asymptomatic -Hepatic function is normal -Recommendation was to repeat CT scan or MRI in 1 year for surveillance Tegan Marie PA-C Cc: Adeel Yeh MD Sign: Tegan Marie PA-C Hematology/Oncology [facility] [phone] Attestation signed by Gisselle Tirado DO at 04/18/2024 9:21 PM Agree with note as above WBC now completely normal Recommend primary team follow up blood counts and pancreatic cyst, refer back PRN documented in this encounter Plan of Treatment Not on file documented as of this encounter Procedures Procedure Name Priority Date/Time Associated Diagnosis Comments ..MISCELLANEOUS REFERENCE LAB TEST 04/14/2024 documented in this encounter Results * Miscellaneous reference lab test (04/14/2024) us Provider Onbase LAB BLOOD ORDERABLES Final Re sult documented in this encounter Visit Diagnoses Not on filedocumented in this encounter Care Teams Mixer Operator Vacuum Pan Salt Relationship Specialty Start Date End Date Adeel Yeh MD [address] [place] [phone] PCP - General 07/24/23 documented as of this encounter
--- OUTSIDE RECORDS SUMMARY | 2024-04-14 10:30 | XMS_ITS | Encounter Summary ---
Author Organization [employer] Address [address] [place] [address] Care Team Providers Care Cartridge Loading Operator Name Role Phone Adeel Yeh MD Primary Care Provider [phone] Encounter Details Date Type Department Care Team (Late st Contact Info) Description 04/14/2024 11:30 AM EDT Hospital Encounter TH HISTORIC ENCOUNTERS EASTERN CONVERSION ONLY Tegan Marie PA [address] [place] [address] Social History Tobacco Use Types Packs/Day Years [...] your loved ones. For example, early childhood lead teacher or elderly care for an older [...] on filedocumented in this encounter Care Teams Cartridge Loading Operator Relationship Specialty Start Date End Date Adeel Yeh MD [address] [place] [phone] PCP - General 07/24/23 documented as of this encounter
--- NOTE | 2025-06-28 11:07 | A.PHYSOV_ITS ---
Vital Signs 06/28/25 11:09 Height 6 ft Weight 160 lb BMI 21.7 Intake Visit Reasons: F/U after injection 06/05/2025 Intake Note: Patient is a 65 year old male here today for follow up after injection. Patient had a left C3-C4,C4-C5,C5-C6 facet injectionon 06/05/25. Patient feels 80 percent better. Documentation Billing Clerk Required: No Allergies No Known Allergies Allergy (Verified 06/28/25 11:10) HPI Comments Details: History of Present Illness The patient is a 65 year old male presenting for a follow-up visit after a left- sided facet joint injection for chronic left-sided neck pain. Patient reports 90% reduction of his pain. He reports improved mobility and range of motion. He is very happy with his results. He denies any fevers or paresthesias. Pain Description - Location: Low back, left-sided facet joints. - Quality: The patient describes some residual sensation as a little bit of swish. - Severity: He describes his pain as a little better and nowhere near like what it was. - Modifying factors: Pain is mildly elicited in a couple of positions. Results [facility] Medical History Colon polyps Personal history of alcoholism Nicotine dependence Insomnia Hyperlipidemia Hx of substance abuse Degenerative disc disease, thoracic PTSD (post-traumatic stress disorder) Depression Bone lesion Current smoker CAD (coronary artery disease) Surgical History Hx of surgical amputation of finger History of coronary artery stent placement (~2016) S/P partial lobectomy of lung Social History Alcohol intake: current Alcohol intake frequency: does not drink Patient Tobacco Use Status: Current everyday Tobacco user Smoking Start Date: 06/29/69 Tobacco use type: Cigarette Cigarette Packs Per Day: 0.5 Cigarettes Per Day: 10.0 Review of Systems Narrative Review of Systems - Musculoskeletal: Reports significant improvement in back pain following a recent facet injection, with only minimal pain in certain positions. Physical Exam Exam Exam: Physical Exam Cervical Spine: Nontender to palpation of the cervical spine. Improve range of motion of the cervical spine. Less tenderness to palpation. Special Tests: Axial Compression test: Negative Spurlings test: Negative Lhermitte's sign is Negative Upper Extremities: Full range of motion bilateral upper extremities. Equal inflatable buildings laminator strength bilaterally. Neuro: Sensation: Intact to upper extremities bilateral to light touch Strength C5 (Elbow Flexion): 5/5 on the left and 5/5 on the right. C6 (Elbow Ext): 5/5 on the left and 5/5 on the right. C7 (Elbow Ext): 5/5 on the left and 5/5 on the right. C8 (Finger Flex): 5/5 on the left and 5/5 on the right. T1 (Finger Abd/Add): 5/5 on the left and 5/5 on the right. DTR: C5 (Biceps): Left 2 Right 2 C6 (Brachioradialis): Left 1 Right 1 C7 (Triceps): Left 2 Right 2 Blanco sign: Negative No pathologic clonus. No involuntary movement. Vital Signs: BMI result Body Mass Index 21.7 Assessment & Plan Assessment & Plan (1) Cervicalgia: Code(s): M54.2 - Cervicalgia Category: Medical Plan Pain Management - Analgesia: The patient reports significant pain relief from a recent left- sided facet joint injection. - Activities of Daily Living: No specific functional limitations were discussed, but the patient reports overall improvement. Plan Patient was informed and verbally consented to the use of an ambient scribe for clinic note documentation during this visit. 1. Chronic Low Back Pain The patient is experiencing significant relief from chronic back pain secondary to facet arthropathy following a recent left-sided facet injection with steroids. The therapeutic effects are expected to last for three to six months. Two future management options were discussed for when the pain returns. The first option is to repeat the facet joint injections, which can be ordered every three to four months, pending insurance authorization. The second option is radiofrequency ablation, a procedure that thompson the nerve innervating the facet joint and can provide longer-term relief for approximately one and a half to two years. This would require a referral to an outside provider. The patient was advised to call the office when his pain begins to return to decide on the next steps. Discussion Notes I discussed with the patient that his recent left-sided facet injection has provided good relief, which is expected to last 3-6 months. I explained the potential for a secondary procedure, radiofrequency ablation, which could offer longer-term pain relief of 1.5 to 2 years by burning the nerve that supplies the facet joint. We reviewed his options for when the pain returns: we can attempt to repeat the facet injections, though insurance may eventually require ablation, or we can refer him for an ablation consultation for more durable relief. Regarding his question about cortisone, I explained that the risk of tissue degradation is associated with a high frequency of repetitive injections at the exact same site, and not with the procedure he had. I advised him to call our office when the pain starts to return to decide whether to pursue repeat injections or an ablation referral. General health advice was provided, including eating healthy and engaging in reasonable exercise. Patient Instructions - Continue to eat healthy and get a reasonable amount of exercise. - Avoid heavy lifting, such as putting bars on your back. - The pain relief from your recent injection is expected to last 3 to 6 months. - Please call our office when your back pain starts to return. - When the pain comes back, we can discuss either repeating the injections or referring you for a longer-lasting procedure called an ablation. Coding Level of Care Code Est Pt Level 3 (83998) Diagnoses Cervicalgia M54.2
[2025-06-28 11:09] VITALS: BMI 21.7
--- OUTSIDE RECORDS SUMMARY | 2025-06-28 12:07 | XMS_ITS | Encounter Summary ---
Author Organization [facility] Address [address] [place] [address] Care Team Providers Care Reporting Developer Name Role Phone Adeel Yeh MD Primary Care Provider [phone] Encounter Details Date Type Department Care Team ([facility] Contact Info) Description 06/26/2025 Results Follow-Up Internal Medicine - [address] [phone] Adeel Yeh MD [address] [phone] Social History Tobacco Use Types Packs/Day Years Used Date Smoking Tobacco: Every Day Cigarettes 1 56 Started: 1969 Passive Smoke Exposure: Current Smokeless Tobacco: Never [...] care for your loved ones. For example, childhood teacher or elderly care for an older [...] documented as of this encounter Care Teams Reporting Developer Relationship Specialty Start Date End Date Adeel Yeh MD [address] [place] [phone] PCP - General 07/24/23 documented as of this encounter
--- OUTSIDE RECORDS SUMMARY | 2025-06-28 12:07 | XMS_ITS | Clinical Summary ---
Author Organization [facility] Prior to 11/26/[address] [place] [address] Care Team Providers Care Senior Sql Server Developer Name Role Phone Adeel Yeh MD Primary Care Provider [phone] Allergies No known active allergies Medications Medication [...] age to complete this topic Care Teams Senior Sql Server Developer Relationship Specialty Start Date End Date Adeel Yeh MD [address] [place] [address] PCP - General Internal Medicine 02/22/24
--- OUTSIDE RECORDS SUMMARY | 2025-06-28 12:07 | XMS_ITS | Encounter Summary ---
Author Organization [facility] Address [address] [place] [address] Care Team Providers Care Orchard Pruner Name Role Phone Adeel Yeh MD Primary Care Provider [phone] Encounter Details Date Type Department Care Team ([facility] Contact Info) Description 05/02/2025 Results Follow-Up Internal Medicine - [address] [phone] Adeel Yeh MD [address] [phone] Social History Tobacco Use Types Packs/Day Years Used Date Smoking Tobacco: Every Day Cigarettes 1 56 Started: 1970 Alcohol Use Standard Drinks/Week Comments [...] for your loved ones. For example, child development assistant or elderly care for an older adult? [...] documented as of this encounter Care Teams Orchard Pruner Relationship Specialty Start Date End Date Adeel Yeh MD [address] [place] [phone] PCP - General 07/24/23 documented as of this encounter
--- OUTSIDE RECORDS SUMMARY | 2025-06-28 12:07 | XMS_ITS | Data Portability ---
Author Organization [place] - [facility], [facility] Bridge Teacher Address [address] [place] [address] Care Team Providers Care Water Restoration Technician Name Role Phone [facility]ADOL[facility] OUTPATIENT Psychia trist Assessment No assessment recorded. Plan of Treatment Reminders Order Date Submit Date Provider Last Modified By Organization Details Last Modified Time Details Appointments None recorded . Lab CBC w/ diff 2021 022 [facility] - Lab, [address] [place] [address], [address], 2 15:46:32 lipid panel, serum [address] - Lab, [address] [place] [address], [address], 2 11:26:22 CMP, serum or plasma 2021 022 [facility] - Lab, [address] [place] [address], [address], 2 16:07:37 TSH, serum or plasma 2021 022 [facility] - Lab, [address] [place] [address], [address], 2 16:07:38 CBC w/ diff 2020 021 [facility] - Lab, [address] [place] [address], 18[address], 13:18:22 Referral pain manageme nt referral - pt with neck and low back pain, prior initial imaging. Pls E&T 2021 022 [email or web address] [facility] (Micah Herring), [address] [facility] [place], [address], 2 08:41:56 physical therapis t referral 2020 021 [facility], [address] [facility], [place], [place], [address], 11:34:18 mental health counselo r referral - CBT for sleep disorder ; hopefull y, get him off quetiapi ne 2020 021 [email or web address] Not available 12:51:18 Procedures None recorded . Surgeries None recorded . Imaging XR, shoulder , 2 or more view 2020 021 [email or web address] [facility] Central Scheduling, [address] [place], [address], 15:51:20 MRI, cervical spine, w/o contrast - Please include T1 nerves as well, since C5 and T1 are next to each other (dermato aury) in the affected area of forearm. 2019 020 [facility] (Central Scheduling), [address] [facility], [place], [address], 0 16:02:22 Medication Orders doxycycl ine monohydr ate 100 mg capsule [address] [facility]/Pharmacy #[id number], [address] [facility] [place], [address], 2 11:33:05 cycloben zaprine 10 mg tablet [address] [facility]/Pharmacy #[id number], [address] [facility] [place], [address], 11:27:23 quetiapi ne 100 mg tablet 2020 021 [email or web address] [facility]/Pharmacy #[id number], [address], [place], [address], 11:33:17 Patient TargetsNo targets recorded. Patient Instructions Encounter Date Encounter Id Patient Instructions Last Modified By Organization Details Last Modified Time 11/15/2020 [id number] cellulitis: care instructions [email or web address] Not available 11/15/2020 09:30:29 07/26/2021 [id number] I evaluated the patient following covid- 19 [...] quetiapine Referring Physician: [facility], [phone] Encounter Date: 09/17/2020 Physical Therapist Referral for Pain of shoulder region Referring Physician: [facility], [phone] Encounter Date: 10/18/2020 Pain Management Referral for Degeneration of cervical intervertebral disc pt with neck and low back pain, prior initial imaging. Pls E&T Referring Physician: Vilma Espana [facility], [phone] Encounter Date: 07/26/2021 Results Created Date Observation Date Name Description Value Unit Range Abnormal Flag Note LastModifiedBy Organization Detail LastModifiedTime 09/19/1909/18/2020 CBC w/ diff white blood count 12.4 K/mm3 4.0-11 .0 high Not Available [address] [place] [address], [address], 09/18/2020 13:18:22 09/19/19 21 09/18/2020 CBC w/ diff red blood count 4.97 M/uL 4.20-5 .80 normal Not Available [address] [place] [address], [address], 09/18/2020 13:18:22 09/19/19 21 09/18/2020 CBC w/ diff hemoglobin 15.5 gm/dL 12.5-1 7.0 normal Not Available [address] [place] [address], [address], 09/18/2020 13:18:22 09/19/19 21 09/18/2020 CBC w/ diff hematocrit 47.2 % 37.0-5 0.0 normal Not Available [address] [place] [address], 39[address], 09/18/2020 13:18:22 09/19/19 21 09/18/2020 CBC w/ diff mean corpuscular volume 95.0 fL 80.0-1 00.0 normal Not Available [address] [place] [address], [address], 09/18/2020 13:18:22 09/19/19 21 09/18/2020 CBC w/ diff MCHC 32.8 % 32-37 normal Not Available [address] [place] [address], [address], 09/18/2020 13:18:22 09/19/19 21 09/18/2020 CBC w/ diff red cell distribution width 12.3 % 11.5-1 6.0 normal Not Available [address] [place] [address], 36[address], 09/18/2020 13:18:22 09/19/19 21 09/18/2020 CBC w/ diff platelet count 272 K/uL 140-40 0 normal Not Available [address] [place] [address], [address], 09/18/2020 13:18:22 09/19/19 21 09/18/2020 CBC w/ diff mean platelet volume 9.8 fL 8.6-12 .5 normal Not Available [address] [place] [address], 37[address], 09/18/2020 13:18:22 09/19/19 21 09/18/2020 CBC w/ diff %nucleated RBC auto 0.0 % 0.0-0. 7 normal Not Available [address] [place] [address] Drawing [address] [place] [address], [address], 09/18/2020 13:18:22 09/19/19 21 09/18/2020 CBC w/ diff %neutrophils auto 60.4 % Not Available [address] [facility] Drawing Station [address] [place] [address], [address], 09/18/2020 13:18:22 09/19/19 21 09/18/2020 CBC w/ diff %lymphocytes auto 29.3 % Not Available [address] [facility] Drawing Station [address] [place] [address], [address], 09/18/2020 13:18:22 09/19/19 21 09/18/2020 CBC w/ diff %monocytes auto 7.1 % Not Available [address] [facility] Drawing Station [address] [place] [address], [address], 09/18/2020 13:18:22 09/19/19 21 09/18/2020 CBC w/ diff %eosinophils auto 2.2 % Not Available [address] [facility] Drawing Station [address] [place] [address], 15[address], 09/18/2020 13:18:22 09/19/19 21 09/18/2020 CBC w/ diff %basophils auto 0.6 % Not Available [address] [facility] Drawing Station [address] [place] [address], [address], 09/18/2020 13:18:22 09/19/19 21 09/18/2020 CBC w/ diff %immature granulocytes auto 0.4 % Not Available [address] [facility] Drawing Station [address] [place] [address], 024[address], 09/18/2020 13:18:22 09/19/19 21 09/18/2020 CBC w/ diff #neutrophils auto 7.48 K/uL 1.50-7 .50 normal Not Available [address] [place] [address], [address], 09/18/2020 13:18:22 09/19/19 21 09/18/2020 CBC w/ diff #lymphocytes auto 3.63 K/uL 1.00-4 .50 normal Not Available [address] [place] [address], [address], 09/18/2020 13:18:22 09/19/19 21 09/18/2020 CBC w/ diff #monocytes auto 0.88 K/uL 0.00-0 .80 high Not Available [address] [place] [address], 93[address], 09/18/2020 13:18:22 09/19/19 21 09/18/2020 CBC w/ diff #eosinophils auto 0.27 K/uL 0.00-0 .40 normal Not Available [address] [place] [address], 13562, 09/18/2020 13:18:22 09/19/19 21 09/18/2020 CBC w/ diff #basophils auto 0.07 K/uL 0.00-0 .20 normal Not Available [address] [place] [address], 933[address], 09/18/2020 13:18:22 09/19/19 21 09/18/2020 CBC w/ diff #immature granulocytes auto 0.05 K/uL 0.00-0 .10 normal Not Available [address] [place] [address], 314[address], 09/18/2020 13:18:22 08/19/19 22 08/19/2021 COMPL ETE BLOOD COUNT W/ DIFF white blood count 12.2 K/mm3 4.0-11 .0 high Not Available [address] [place] [address], 99[address], 08/19/2021 15:46:32 08/19/19 22 08/19/2021 COMPL ETE BLOOD COUNT W/ DIFF red blood count 5.14 M/uL 4.20-5 .80 normal Not Available [address] [place] [address], 99327, 08/19/2021 15:46:32 08/19/19 22 08/19/2021 COMPL ETE BLOOD COUNT W/ DIFF hemoglobin 16.1 gm/dL 12.5-1 7.0 normal Not Available [address] [place] [address], 81415, 08/19/2021 15:46:32 08/19/19 22 08/19/2021 COMPL ETE BLOOD COUNT W/ DIFF hematocrit 50.1 % 37.0-5 0.0 high Not Available [address] [place] [address], 13828, 08/19/2021 15:46:32 08/19/19 22 08/19/2021 COMPL ETE BLOOD COUNT W/ DIFF mean corpuscular volume 97.5 fL 80.0-1 00.0 normal Not Available [address] [place] [address], 01190, 08/19/2021 15:46:32 08/19/19 22 08/19/2021 COMPL ETE BLOOD COUNT W/ DIFF MCHC 32.1 % 32-37 normal Not Available [address] [place] [address], 97747, 08/19/2021 15:46:32 08/19/19 22 08/19/2021 COMPL ETE BLOOD COUNT W/ DIFF red cell distribution width 12.1 % 11.5-1 6.0 normal Not Available [address] [place] [address], 67125, 08/19/2021 15:46:32 08/19/19 22 08/19/2021 COMPL ETE BLOOD COUNT W/ DIFF platelet count 266 K/uL 140-40 0 normal Not Available [address] [place] [address], 81926, 08/19/2021 15:46:32 08/19/19 22 08/19/2021 COMPL ETE BLOOD COUNT W/ DIFF mean platelet volume 10.1 fL 8.6-12 .5 normal Not Available [address] [place] [address] Drawing Station [address] [place] [address], [address], 08/19/2021 15:46:32 08/19/19 22 08/19/2021 COMPL ETE BLOOD COUNT W/ DIFF %nucleated RBC auto 0.0 % 0.0-0. 7 normal Not Available [address] [place] [address] Drawing Station [address] [place] [address], 81737, 08/19/2021 15:46:32 08/19/19 22 08/19/2021 COMPL ETE BLOOD COUNT W/ DIFF %neutrophils auto 66.2 % Not Available [address] [facility] Drawing Station [address] [place] [address], 78[address], 08/19/2021 15:46:32 08/19/19 22 08/19/2021 COMPL ETE BLOOD COUNT W/ DIFF %lymphocytes auto 25.2 % Not Available [address] [facility] Drawing Station [address] [place] [address], 42506, 08/19/2021 15:46:32 08/19/19 22 08/19/2021 COMPL ETE BLOOD COUNT W/ DIFF %monocytes auto 5.6 % Not Available [address] [facility] Drawing Station [address] [place] [address], 085[address], 08/19/2021 15:46:32 08/19/19 22 08/19/2021 COMPL ETE BLOOD COUNT W/ DIFF %eosinophils auto 2.2 % Not Available [address] [facility] Drawing Station [address] [place] [address], 13421, 08/19/2021 15:46:32 08/19/19 22 08/19/2021 COMPL ETE BLOOD COUNT W/ DIFF %basophils auto 0.6 % Not Available [address] [facility] Drawing Station [address] [place] [address], 71999, 08/19/2021 15:46:32 08/19/19 22 08/19/2021 COMPL ETE BLOOD COUNT W/ DIFF %immature granulocytes auto 0.2 % Not Available [address] [facility] [address] Drawing Station [address] [place] [address], 81595, 08/19/2021 15:46:32 08/19/19 22 08/19/2021 COMPL ETE BLOOD COUNT W/ DIFF #neutrophils auto 8.04 K/uL 1.50-7 .50 high Not Available [address] [place] [address], 42580, 08/19/2021 15:46:32 08/19/19 22 08/19/2021 COMPL ETE BLOOD COUNT W/ DIFF #lymphocytes auto 3.07 K/uL 1.00-4 .50 normal Not Available [address] [place] [address], 52595, 08/19/2021 15:46:32 08/19/19 22 08/19/2021 COMPL ETE BLOOD COUNT W/ DIFF #monocytes auto 0.68 K/uL 0.00-0 .80 normal Not Available [address] [place] [address], 35662, 08/19/2021 15:46:32 08/19/19 22 08/19/2021 COMPL ETE BLOOD COUNT W/ DIFF #eosinophils auto 0.27 K/uL 0.00-0 .40 normal Not Available [address] [place] [address], 83275, 08/19/2021 15:46:32 08/19/19 22 08/19/2021 COMPL ETE BLOOD COUNT W/ DIFF #basophils auto 0.07 K/uL 0.00-0 .20 normal Not Available [address] [place] [address], 31656, 08/19/2021 15:46:32 08/19/19 22 08/19/2021 COMPL ETE BLOOD COUNT W/ DIFF #immature granulocytes auto 0.03 K/uL 0.00-0 .10 normal Not Available [address] [place] [address], 13600, 08/19/2021 15:46:32 08/19/19 22 08/19/2021 COMPR EHENS EDWIN METAB OLIC PANEL sodium 140 mEq/L 135-14 5 normal Not Available [address] [place] [address] [place] [address], 74348, 08/19/2021 16:07:37 08/19/19 22 08/19/2021 COMPR EHENS EDWIN METAB OLIC PANEL potassium 4.3 mEq/L 3.5-5. 1 normal Not Available [address] [place] [address], 92315, 08/19/2021 16:07:37 08/19/19 22 08/19/2021 COMPR EHENS EDIWN METAB OLIC PANEL chloride 107 mEq/L 98-112 normal Not Available [address] [place] [address], 97156, 08/19/2021 16:07:37 08/19/19 22 08/19/2021 COMPR EHENS EDWIN METAB OLIC PANEL carbon dioxide 26 mEq/L 20-32 normal Not Available [address] [place] [address] [place] [address], 060[address], 08/19/2021 16:07:37 08/19/19 22 08/19/2021 COMPR EHENS EDWIN METAB OLIC PANEL anion gap 7 mEq/L 5-15 normal Not Available [address] [place] [address] [place] [address], 89848, 08/19/2021 16:07:37 08/19/19 22 08/19/2021 COMPR EHENS EDWIN METAB OLIC PANEL blood urea nitrogen (BUN) 17 mg/dL 6-23 normal Not Available [address] [place] [address] [place] [address], 79264, 08/19/2021 16:07:37 08/19/19 22 08/19/2021 COMPR EHENS EDWIN METAB OLIC PANEL creatinine 1.00 mg/dL 0.00-1 .30 normal Not Available [address] [place] [address], 68470, 08/19/2021 16:07:37 08/19/19 22 08/19/2021 COMPR EHENS [...] G5 (kidn ey failu re). Not Available [address] [place] [address], 90751, 08/19/2021 16:07:37 08/19/19 22 08/19/2021 COMPR EHENS EDWIN METAB OLIC PANEL glucose 100 mg/dL 70-100 normal Fasti ng Refer ence Inter barbara: 70-10 0mg/d L Non-f astin g Refer ence Inter barbara: 70-14 0mg/d L Not Available [address] [place] [address] Drawing Station [address] [place] [address], 48[address], 08/19/2021 16:07:37 08/19/19 22 08/19/2021 COMPR EHENS EDWIN METAB OLIC PANEL calcium 10.0 mg/dL 8.1-10 .4 normal Not Available [address] [place] [address], 66468, 08/19/2021 16:07:37 08/19/19 22 08/19/2021 COMPR EHENS EDWIN METAB OLIC PANEL bilirubin total 0.6 mg/dL 0.2-1. 3 normal Not Available [address] [place] [address], 05871, 08/19/2021 16:07:37 08/19/19 22 08/19/2021 COMPR EHENS EDWIN METAB OLIC PANEL aspartate amino transferase 23 IU/L 15-37 normal Not Available [address] [place] [address], 68115, 08/19/2021 16:07:37 08/19/19 22 08/19/2021 COMPR EHENS EDWIN METAB OLIC PANEL alanine aminotransfe rase 58 IU/L 16-61 normal Not Available [address] [place] [address] [place] [address], 09344, 08/19/2021 16:07:37 08/19/19 22 08/19/2021 COMPR EHENS EDWIN METAB OLIC PANEL total protein 7.6 g/dL 6.1-8. 2 normal Not Available [address] [place] [address], 96313, 08/19/2021 16:07:37 08/19/19 22 08/19/2021 COMPR EHENS EDWIN METAB OLIC PANEL albumin 4.6 g/dL 2.9-4. 7 normal Not Available [address] [place] [address], 05089, 08/19/2021 16:07:37 08/19/19 22 08/19/2021 COMPR EHENS EDWIN METAB OLIC PANEL alkaline phosphatase 113 IU/L 18-210 normal Not Available [address] [place] [address], 63037, 08/19/2021 16:07:37 08/19/19 22 08/19/2021 LIPID PANEL triglyceride s 112 mg/dL normal Lilian l <=150 Lilian l 150-1 99 Borde rline High 200-4 99 High >=500 Very High Not Available [address] [place] [address], 63017, 08/19/2021 16:07:38 08/19/19 22 08/19/2021 LIPID PANEL cholesterol 168 mg/dL normal Jael able <200 Jael able 200-2 39 Borde rline High >=240 High Not Available [address] [place] [address], 65566, 08/19/2021 16:07:38 08/19/19 22 08/19/2021 LIPID PANEL LDL cholesterol calculated 87 mg/dL normal Optim al <100 Optim al 100-1 29 Near optim al 130-1 59 Borde rline High 160-1 89 High >=190 Very High Not Available [address] [place] [address], 30483, 08/19/2021 16:07:38 08/19/19 22 08/19/2021 LIPID PANEL HDL cholesterol 59 mg/dL normal <40 Low >=60 Optim al Not Available [address] [place] [address], 63516, 08/19/2021 16:07:38 08/19/19 22 08/19/2021 THYRO ID STIMU LATIN G HORMO NE thyroid stimulating hormone 0.97 uIU/m L 0.36-3 .74 normal Not Available [address] [place] [address], 00834, 08/19/2021 16:07:38 04/27/20 20 04/27/2020 MRI, cervi kojo spine , w/o contr ast [facility] [place] [address] Magnet ic Resona nce Report Signed Patien t: Js Ross 3254 : [address]: Radha coronel EMR ID: [id number] Age/Se x: 60/M E.D. Attend ing: Acct: [id number] Loc: RAD.NA PCP: Radha coronel MD Admit/ Svc Date: Orderi ng Physic adam: Radha coronel MD Date of Servic e: Proced ure(s) : MR cervic al spine wo con Reason for Exam: parast hesia of upper limb/ right sided C5 or T1 pa Access ion Number (s): [id number] Fax to: cc: Radha coronel MD [...] by level: C2-C3: Unrema rkable C3-C4: Small ice sculptor ior disc osteop hyte comple x effaci ng the ventra l subara chnoid space. Mild compro mise of the forami na. C4-C5: Unrema rkable C5-C6: Broad- based ice sculptor ior discal spur comple x causin g [...] the forami na at C3-C4 with a ice sculptor ior disc osteop hyte comple x not reachi ng the cord. No eviden ce of cord compre ssion. Statio n: [id number] Docume nted by: Chacha Howard i, MD 1557 ACONNO RS [email or web address] [facility] (Radiology) [address] [place] [address], [address], 05/21/2020 08:51:59 09/19/19 21 09/18/2020 XR, shoul bruna, 2 or more view [facility] st[facility] Imagin g [facility] [place] [address] X-Ray Report Signed Patien t: Js Ross 3254 : [address]: Radha coronel EMR ID: [id number] Age/Se x: 60/M E.D. Attend ing: Acct: [id number] Loc: RAD.NA PCP: Radha coronel MD Admit/ Svc Date: Orderi ng Physic adam: Radha coronel MD Date of Servic e: Proced ure(s) : XR should er RT 3V Reason for Exam: Right should er pain Access ion Number (s): [id number] Fax to: cc: Radha coronel MD [...] by Cindy Álvarez MD. S-ABUL GUCCI [email or web address] [facility] (Radiology) [address] [place] [address], [address], 10/09/2020 15:51:19 02/26/20 21 02/25/2021 MRI, shiv mcfarland, w/o contr ast [facility] st[facility] Imagin g [facility] [place] [address] Magnet ic Resona nce Report Signed Patien t: Js Ross 3254 : [address]: Vilma STOKES EMR ID: [id number] Age/Se x: 61/M E.D. Attend ing: Acct: [id number] Loc: RAD.NA PCP: DIVYA Head Admit/ Svc Date: Orderi ng Physic adam: DIVYA Head Date of Servic e: Proced ure(s) : MR should er RT wo con Reason for Exam: right should er pain Access ion Number (s): [id number] Fax to: cc: DIVYA Head MRI [...] frayin g/nond isplac ed tear of the ice sculptor ior labrum at its juncti on with the capsul e, with capsul ar defect due to tear and adjace nt soft tissue edema. Mild degene rative ossifi cation of the base of the anteri or and ice sculptor ior labrum . No other signif icant labral tear. BONES: Small subcor tical cystic foci in the ice sculptor ior aspect of the greate r tubero [...] frayin g/nond isplac ed tear of the ice sculptor ior labrum with tear of the adjace nt ice sculptor ior joint capsul e. Marked thicke jeffrey with edema of the inferi or glenoh umeral ligame nt, underl albert tear not exclud ed. Statio n: [id number] 0A Electr onical ly signed on at 1133 by Jong Nesbitt MD. GDEMO [email or web address] [facility] (Radiology) [address] [place] [address], [address], 07/26/2021 11:59:47 Result Notes Documentation Provider Name and Address Organization Details Recorded Time Mri, Cervical Spine, W/o Contrast : [facility] [place] [address] Magnetic Resonance Report Signed Patient: Js Ross : [address]: Radha Baer EMR ID: [id number] Age/Sex: 60/M E.D. Attending: Acct: [id number] Loc: RAD.NA PCP: Radha Baer MD Admit/Svc Date: 04/27/20 Ordering Physician: Radha Baer MD Date of Service: 04/27/20 Procedure(s): MR cervical spine wo con Reason for Exam: parasthesia of upper limb/ right sided C5 or T1 pa Accession Number(s): [id number] Fax to: cc: Radha Baer MD MRI [...] cord. No evidence of cord compression. Station: [id number] Documented by: Lenny Teresa MD 04/27/20 1557 [facility] Radha Baer MD [address] [place] [address], [id number], [facility] - MD [facility] 05/21/2020 08:51:59 Xr, Shoulder, 2 Or More View : [facility] [place] [address] X-Ray Report Signed Patient: Js Ross : [address]: Radha Baer EMR ID: [id number] Age/Sex: 60/M E.D. Attending: Acct: [id number] Loc: RAD.NA PCP: Radha Baer MD Admit/Svc Date: 09/18/20 Ordering Physician: Radha Baer MD Date of Service: 09/18/20 Procedure(s): XR shoulder RT 3V Reason for Exam: Right shoulder pain Accession Number(s): [id number] Fax to: cc: Radha Baer MD RIGHT SHOULDER, THREE VIEWS 09/18/2020 10:45 AM Findings: Mild AC joint hypertrophic changes. Mild degenerative changes of the inferior glenohumeral joint.. No fracture or dislocation. The visualized ribs and lung field are normal. Station: [id number] Electronically signed on 09/18/20 at 1505 by Cindy Álvarez MD. Tash-ONESIMO [facility] MD [facility] 10/09/2020 15:51:19 Mri, Shoulder, W/o Contrast : [facility] Diagnostic [facility] [place] [address] Magnetic Resonance Report Signed Patient: Js Ross : [address]: Vilma STOKES EMR ID: [id number] Age/Sex: 61/M E.D. Attending: Acct: [id number] Loc: RAD.NA PCP: DIVYA Head Admit/Svc Date: 02/25/21 Ordering Physician: DIVYA Head Date of Service: 02/25/21 Procedure(s): MR shoulder RT wo con Reason for Exam: right shoulder pain Accession Number(s): [id number] Fax to: cc: DIVYA Head MRI RIGHT [...] glenohumeral ligament, underlying tear not excluded. Station: [id number] Electronically signed on 02/25/21 at 1133 by Jong Nesbitt MD. GDAZALEA Espana, [address], [address], [facility] MD [facility] 07/26/2021 11:59:47 Problems Name Problem SNOMED Code Status Onset Date Resolution Date Notes Provider Name and Address Organization Details Recorded Time Chronic back pain 050503448 Active Vilma Epsana [address], [address], [facility] Stream5 [facility] 2 16:12:40 Dyspnea 729365892 Active Not Available [facility] 05:59:48 Intermitt ent palpitati ons 949568324 Active Not Available [facility] 05:59:48 Chronic mental disorder 116556392 Active Not Available [facility] 05:59:48 Tobacco user 992858486 Active Not Available [facility] 05:59:48 Sexually transmitt ed infectiou s disease 5504500 Active Not Available [facility] 05:59:48 Hyperlipi demia 84602450 Active Vilma EspanaDIVYA [address] [place], [address], [facility] idiag 2 16:12:33 Coronary arteriosc lerosis 53114811 Active 2020 99% LAD stented 7 Not Available [facility] 1 05:59:48 Problem Notes None recorded. Procedures Surgical History Date Name Laterality Status Provider Name and Address Organization Details Recorded Time 015 Colonoscopy completed Paris Zaman MD [address] [place], [address], [facility] 06/12/2015 10:25:46 [facility]/14[facility]2017 09:34:30 Cardiac catheterization completed [facility] 04/14/2017 09:34:51 Imaging Results None recorded. [...] Updated DateTime 2 177.8 cm 23.2 kg/m2 48257.9 6 g 16 /min 76 /min 98 % 97.7 [degF] 124/80 mm[Hg] Merle Munoz [facility] Stream5 [facility] 2 11:32:38 Date Recorded Body height Body mass index (BMI) Body weight Body temperature Heart rate Oxygen saturation Respiratory rate Systolic And Diastolic Provider Name and Address Organization Details Last Updated DateTime 1 177.8 cm 22.2 kg/m2 15815.8 2 g 97 [degF] 87 /min 99 % 14 /min 138/76 mm[Hg] Asya Gross [facility] Stream[facility] 1 10:58:23 Date Recorded Body height Body mass index (BMI) Body weight Heart rate Oxygen saturation Respiratory rate Body temperature Systolic And Diastolic Provider Name and Address Organization Details Last Updated DateTime 1 177.8 cm 23.7 kg/m2 41070.7 4 g 92 /min 97 % 14 /min 97.2 [degF] 134/82 mm[Hg] Asya Gross [facility] 1 11:05:46 Date Recorded Body height Body mass index (BMI) Body weight Heart rate Oxygen saturation Systolic And Diastolic Provider Name and Address Organization Details Last Updated DateTime 1 177.8 cm 22.7 kg/m2 76366.5 9 g 78 /min 98 % 120/67 mm[Hg] Alyssa Wynn CMA [facility] 1 09:20:40 Date Recorded Body temperature Body height Body mass index (BMI) Body weight Respiratory rate Heart rate Oxygen saturation Systolic And Diastolic Provider Name and Address Organization Details Last Updated DateTime 0 96.8 [degF] 177.8 cm 22.8 kg/m2 90383.1 9 g 14 /min 64 /min 97 % 102/78 mm[Hg] Asya Ellerieski [facility] 0 11:27:40 Social History Question Answer Notes LastModified by Owl[employer] Details LastModified Time Tobacco Smoking Status Current Every Day Smoker Sole maier [facility] 06/12/2015 09:57:29 What Is [...] Functional Status Question Answer Note LastModified by Owl[employer] Details LastModified Time What is your level [...] Lung Disorder Y Cardiac History, Heart Murmur, [place] Y Arthritis Y Insomnia Y Cholesterol High or Low Y Chronic Pain Y GI Problems Y Immunizations Vaccine Type Date Status Note Provider Nam e and Address Organization Details Recorded Time COVID-19, mRNA, LNP-S, PF, 30 mcg/0.3 mL dose 02/22/2021 completed Jag maier [place] - [facility] 03/17/2023 15:22:40 COVID-19, mRNA, LNP-S, PF, 30 mcg/0.3 mL dose 03/21/2021 completed Jag Kaleigh maier [place] - [facility] 03/17/2023 15:22:40 Past Encounters Encounter ID Performer Location Encounter Start Date Encounter Closed Date Diagnosis/Indication Diagnosis SNOMED-CT Code Diagnosis ICD10 Code Diagnosis IMO Codes Diagnosis Note [id number] Paris Zaman MD [address] [address] 06/12/2015 09:17:14 06/12/2015 11:04:15 Chronic back pain 046242239 R52 FROST MM. Dyspnea 063353253 R06.00 Intermitte nt palpitations 242074329 R00.2 Close watch for now. Order old record to review then decide next step. Chronic me ntal disorder 087951015 F99 Continue Seroquel. Keep FU with psychiatri st. Tobacco user 531581477 Z 72.0 Smoking cessation strongly advised. Counseled for over 3 min about the risk and harm of smoking to his general health and the risk and benefit of different choices to quit smoking. Call me if ready and need more help.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
--- OUTSIDE RECORDS SUMMARY | 2025-06-28 12:07 | XMS_ITS | Clinical Summary ---
Author Organization [facility] [address] Address [address] [place] [address] Phone Care Team Providers Care Boarding Mother Name Role Phone Adeel Yeh MD Primary Care Provider [phone] Allergies No known active allergies Medications aspirin 81 mg EC tablet Take 81 mg by mouth daily. Active nitroglycerin (NITROSTAT) 0.[address] 1 tablet (0.4 mg total) under the tongue every 5 (five) minutes if needed for chest pain. May repeat dose every 5 minutes for up to 3 doses total. 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 90 capsule 1 5 Active varenicline tartrate (CHANTIX HALIE) 0.5 mg (11)- 1 mg (42) tablet Use as directed on package instructions, try to quit smoking after 1 week. 53 tablet 2 5 07/27/19 26 Active Additional Information Patient not taking.Reported on 05/03/2025 buPROPion SR (WELLBUTRIN SR) 150 mg 12 hr tablet Active traZODone (DESYREL) 50 mg tablet TAKE 1 TABLET BY MOUTH AT BEDTIME CAN INCREASE TO 2 IN 2 WEEKS IF NOT EFFECTIVE Active cyclobenzaprine (FLEXERIL) 10 mg tablet TAKE 1 TABLET BY MOUTH THREE TIMES A DAY NEEDED FOR MUSCLE SPASM 30 tablet 1 5 Active Active Problems Problem Noted Date Diagnosed Date Cervical spondylosis with radiculopathy 05/03/20 25 Assessment & Plan (05/03/2025 12:41 PM EST): [...] myelopathic findings. 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 Personal history of alcoholism 06/24/2018 Encounters Date Type Department Care Team Description 06/26/2025 Results Follow-Up Internal Medicine - [place] [address] [facility] [address] [place] [address] Adeel Yeh MD 06/17/2025 8:00 AM EST - 06/17/2025 11:59 PM EST Hospital Encounter [facility] CT Scan [address] [place] [address] Encounter for screening for malignant neoplasm of respiratory organs; Nicotine dependence, cigarettes, uncomplicated Discharge Disposition: Home or Self Care 06/17/2025 - 06/17/2025 8:49 PM EST Emergency [facility] Emergency [address] [place] [address] Discharge Disposition: ED Dismiss - Never Arrived 05/24/2025 Telephone Lung Screening Program - [place] [address] [facility] [address] [place] [address] Amy Trujillo MD 05/03/2025 11:30 AM EST Consult Neurosurgery [place] [address] [facility] [address] [place] [address] Jeff Hunt PA Cervical spondylosis with radiculopathy (Primary Dx) 05/02/2025 Results Follow-Up Internal Medicine - [place] [address] [facility] [address] [place] [address] Adeel Yeh MD 04/28/2025 10:50 AM EDT Lab Draw Station - [facility] [place] [address] [place] [address] Medicare annual wellness visit, initial; Other abnormal glucose; Other fatigue; Mixed hyperlipidemia 04/28/2025 10:00 AM EDT Office Visit Internal Medicine - [place] [address] [facility] [address] [place] [address] Adeel Yeh MD Medicare annual wellness visit, initial (Primary Dx); 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; Chronic depression; Mixed hyperlipidemia; Cigarette nicotine dependence with nicotine-induced disorder; Routine general medical examination at a health care facility; Smoking greater than 40 pack years; Other fatigue; Other abnormal glucose 04/12/2025 4:55 PM EDT - 04/12/2025 11:59 PM EDT Hospital Encounter Radiology Department [address] [id number] Cervicalgia; Radiculopathy, cervical region Discharge Disposition: Home [...] de pression Personal history of alcoholi sm ([facility] V24, [facility] V28) 06/24/2018 DX:Personal history of alcoh olism ([facility]) History of substance abuse ( [facility] V24, [facility] V28) 06/24/2018 DX:History of substance abus e ([facility]); COMMENT: In remission since 2009 Hyperlipidemia 06/24/2018 [...] care for your loved ones. For example, housekeeper child care or elderly care for an older adult? [...] AM EST Sexual Orientation Not on file Last Filed Vital Signs [...] 05/03/2025 11:22 AM EST Plan of Treatment Health Maintenance Due Date Last Done Comments DTaP,Tdap,and Td Vaccines (1 - Tdap) 1981 Pneumococcal Vaccine: 50+ Years (1 of 2 - PCV) 1981 RSV Immunization Adult Patients (1 - Risk 50-74 years 1-dose series) 02/04/2012 Zoster Vaccines (1 of 2) 02/04/2012 HIV Screening 06/01/2022 COVID-19 Vaccine (3 - 2024-2 6 season) 2025 03/21/2021, 02/22/2021 Influenza Vaccine (#1) 2025 09/09/2019 Social Influencers of Health Screening 04/21/2026 04/21/2025 Hypertension/CHF/CAD Annual BMP Blood Test 04/28/2026 04/28/2025, 02/01/2024, 02/01/2024 Medicare Annual Wellness Visit 04/28/2026 04/28/2025 Lung Cancer Screening (Low Dose CT) 06/17/2026 06/17/2025, 06/16/2024 Colorectal Cancer Screening: Colonoscopy 07/09/2028 07/09/2018 Cholesterol [...] Procedure Name Priority Date/Time Associated Diagnosis Comments CT LUNG SCREENING Routine 06/17/2025 8:3 2 AM EST Encounter for screening for malignant neoplasm of respiratory organs Nicotine dependence, cigarettes, uncomplicated EXTERNAL XRAY REPORT 06/05/2025 EXTERNAL XRAY REPORT 06/05/2025 CBC WITH AUTO DIFFERENTIAL Routine 04/28/2025 10:47 [...] 5:56 PM EDT Cervicalgia Radiculopathy, cervical region DEPRESSION SCREENING Routine 02/17/2024 HEPATITIS C SCREENING Routine 08/19/2023 COLONOSCOPY Routine 07/09/2018 from Last 3 Months or Most Recently Relevant to Health Maintenance Results * CT Lung Screening (06/17/2025 8:32 AM EST) Anatomical Region Laterality Modality Chest Computed Tomogra phy 06/21/2025 3:43 PM EST Impressions 06/21/2025 3:54 PM EST Impression: No suspicious developing pulmonary nodule. No significant change. Lung-RADS Category: Lung-RADS 2: Nodule(s) with benign appearance or behavior. Continue annual screening with Low Dose Chest CT in 12 months. Telerad MALA ([id number]) -------- FINAL REPORT -------- Dictated By: Jossy [place] Dictated Date: 06/21/2025 15:43 ET Assigned Physician: Jossy [place] Reviewed and Electronically Signed By: Jossy [place] Signed Date: 06/21/2025 15:54 ET Workstation ID: [id number] Transcribed By: Self Edit Transcribed Date: 06/21/2025 15:43 ET Narrative 06/21/2025 3:54 PM EST History: 65 year-old 55 pack-year current smoker, asymptomatic, for lung cancer screening. Comparison: 06/16/24, 01/10/20 Technique: Helical volumetric imaging of the thorax was performed, using low- dose technique, without IV contrast. DLP: 124.46 mGy/cm CTDIvol: 3.22 mGy IG [employer]uit[employer] VCT Iterative reconstruction technique Findings: Lungs and Airways: The trachea and central bronchial tree remain patent. Left lower lobe wedge resection sequela are again seen. Linear juxtapleural calcification versus surgical chain suture is again seen at the left apex. Patchy centrilobular emphysema is again noted. A 14 x 9 mm solid, noncalcified nodule with circumscribed margins is again seen in the left lower lobe, without significant change dating back to at least 01/10/20, consistent with a benign process. Few scattered subcentimeter groundglass nodules are noted. No suspicious developing nodule is seen. Pleura: No pleural or pericardial effusions are seen. Base of neck, mediastinum and heart: The heart remains normal in size. Moderate coronary artery calcification is again seen. No developing thoracic lymphadenopathy is noted. Soft tissues: The overlying soft tissues are unremarkable. Abdomen: This study was performed without contrast and with lower than standard dose. These factors reduce the sensitivity for detection of small lesions in the upper abdomen. Nonobstructing left renal calculi are partially imaged. Diverticulosis of the partially imaged colon is noted. Procedure Note Jossy [place] MD - 06/21/2025 History: 65 year-old 55 pack-year current smoker, asymptomatic, for lungcancer screening. Comparison: 06/16/24, 01/10/20 Technique: Helical volumetric imaging of the thorax was performed, usinglow-dose technique, without IV contrast. DLP: 124.46 mGy/cm CTDIvol: 3.22 mGy IG [employer] VCT Iterative reconstruction technique Findings: Lungs and Airways: The trachea and central bronchial tree remain patent.Left lower lobe wedge resection sequela are again seen. Linearjuxtapleural calcification versus surgical chain suture is again seen atthe left apex. Patchy centrilobular emphysema is again noted. A 14 x 9 mm solid, noncalcified nodule with circumscribed margins is againseen in the left lower lobe, without significant change dating back to atleast 01/10/20, consistent with a benign process. Few scattered subcentimeter groundglass nodules are noted. No suspiciousdeveloping nodule is seen. Pleura: No pleural or pericardial effusions are seen. Base of neck, mediastinum and heart: The heart remains normal in size.Moderate coronary artery calcification is again seen. No developingthoracic lymphadenopathy is noted. Soft tissues: The overlying soft tissues are unremarkable. Abdomen: This study was performed without contrast and with lower thanstandard dose. These factors reduce the sensitivity for detection of smalllesions in the upper abdomen. Nonobstructing left renal calculi arepartially imaged. Diverticulosis of the partially imaged colon is noted. IMPRESSION: Impression: No suspicious developing pulmonary nodule. No significant change. Lung-RADS Category: Lung-RADS 2: Nodule(s) with benign appearance orbehavior. Continue annual screening with Low Dose Chest CT in 12 months. Telerad PA ([id number]) -------- FINAL REPORT -------- Dictated By: Jossy [place] Dictated Date: 06/21/2025 15:43 ET Assigned Physician: Jossy [place] Reviewed and Electronically Signed By: Jossy [place] Signed Date: 06/21/2025 15:54 ET Workstation ID: [id number] Transcribed By: Self Edit Transcribed Date: 06/21/2025 15:43 ET Amy Trujillo MD IMG CT PROCEDURES Final Result * External Xray Report (06/05/2025) Only the most recent of2 resultswithin the time period is included. Anatomical Region Laterality Modality Radiographic Liat ging Provider [facility] IMG XR PROCEDURES Final Result * Thyroid stimulating hormone with reflex to free t4 and free t3 (04/28/2025 10:47 AM EDT) TSH 0.44 0.40 - 4.00 mcIU/mL LAB CHEMISTRY METHOD 04/28/2025 4:15 PM EDT [facility] Blood Venous blood specimen / Unknown Venipuncture / Unknown 04/28/2025 10:47 AM EDT 04/28/2025 10:47 AM EDT Adeel Yeh MD LAB BLOOD ORDERABLES Final Resul t [facility] [address] [place] [address], [place] [phone] * Lipid panel with reflex to direct LDL (04/28/2025 10:47 AM EDT) Cholesterol 132 0 - 200 mg/dL LAB CHEMISTRY METHOD 04/28/2025 4:11 PM EDT [facility] Triglycerides 98 0 - 150 mg/dL LAB CHEMISTRY METHOD [facility] HDL 55 >=40 mg/dL LAB CHEMISTRY METHOD 04/28/2025 4:11 PM EDT [facility] LDL Calculated 57 0 - 100 mg/dL LAB CHEMISTRY METHOD 04/28/2025 4:11 PM EDT [facility] Comment:Estimated LDL Calcul ated using equation: Total cholesterol - HDL cholesterol - (Triglycerides/5) VLDL Cholesterol German 19.6 mg/dL LAB CHEMISTRY METHOD 04/28/2025 4:11 PM [facility] Non HDL Chol. (LDL+VLDL) 77 <145 mg/dL LAB CHEMISTRY METHOD 04/28[facility]2025 4:[facility] Chol/HDL Ratio 2.4 0.0 - 4.4 LAB CHEMISTRY METHOD 04/28/2025 4:11 PM [facility] Blood Venous blood specimen / Unknown Venipuncture / Unknown 04/28/2025 10:47 AM EDT 04/28/2025 10:47 AM EDT Adeel Yeh MD LAB BLOOD ORDERABLES Final Resul t [facility] [address] [place] [address], * (ABNORMAL) CBC auto differential (04/28/2025 10:47 AM EDT) WBC 11.7(H) 4.8 - 10.8 K/[facility] LAB HEMETOLOGY METHOD 04/28/2025 2:21 PM EDT [facility] RBC 5.00 4.50 - 5.50 M/[facility] LAB HEMETOLOGY METHOD 04/28/2025 2:21 PM EDT [facility] Hemoglobin 15.6 13.5 - 17.5 g/dL LAB HEMETOLOGY METHOD 04/28/2025 2:[facility] Hematocrit 47.8 42.0 - 54.0 % LAB HEMETOLOGY METHOD 04/28/2025 2:21 PM [facility] MCV 96.4 79.0 - 98.0 FL LAB HEMETOLOGY METHOD 04/28/2025 2:21 PM [facility] MCH 31.5 27.0 - 32.0 pcg LAB HEMETOLOGY METHOD 04/28/2025 2:21 PM [facility] MCHC 32.6 32.0 - 37.0 g/dL LAB HEMETOLOGY METHOD 04/28/2025 2:21 PM [facility] RDW 12.3 11.0 - 15.0 % LAB HEMETOLOGY METHOD 04/28/2025 2:21 PM [facility] Platelets 230 130 - 400 K/mcL LAB HEMETOLOGY METHOD 04/28/2025 2:21 PM [facility] MPV 9.7 7.0 - 11.0 FL LAB HEMETOLOGY METHOD 04/28/2025 2:21 PM [facility] NRBC 0.0 <1.0 % LAB HEMETOLOGY METHOD 04/28/2025 2:21 PM [facility] NRBC Absolute 0.00 <0.10 K/mcL LAB HEMETOLOGY METHOD 04/28/2025 2:21 PM [facility] Neutrophils Relative 68.3 % LAB HEMETOLOGY [...] PM [facility] Neutrophils Absolute 7.96(H) 1.50 - 7.00 K/mcL LAB HEMETOLOGY METHOD 04/28/2025 2:21 PM [facility] Lymphocytes Absolute 2.67 1.00 - 5.00 K/mcL LAB HEMETOLOGY METHOD 04/28/2025 2:21 PM [facility] Monocytes Absolute 0.78 0.20 - 1.00 K/mcL LAB HEMETOLOGY METHOD 04/28/2025 2:21 PM [facility] Eosinophils Absolute 0.14 0.00 - 0.50 K/mcL LAB HEMETOLOGY METHOD 04/28/2025 2:21 PM [facility] Basophils Absolute 0.06 0.00 - 0.20 K/mcL LAB HEMETOLOGY METHOD 04/28/2025 2:21 PM [facility] Immature Granulocytes Absolute 0.05(H) 0.00 - 0.03 K/mcL LAB HEMETOLOGY METHOD 04/28/2025 2:21 PM [facility] Blood Venous blood specimen / Unknown Venipuncture / Unknown 04/28/2025 10:47 AM EDT 04/28/2025 10:47 AM EDT us Adeel Yeh MD LAB BLOOD ORDERABLES Final Resul t [facility] [address] [place] [address], [place] [phone] * Hemoglobin A1c (04/28/2025 10:47 AM EDT) [facility] Hemoglobin A1C 6.4 <6.5 % LAB CHEMISTRY METHOD 04/28/2025 4:09 PM EDT [facility] Mean Bld Glu Estim. 137 mg/dL LAB CHEMISTRY METHOD 04/28/2025 4:09 PM EDT [facility] Blood Venous blood specimen / Unknown Venipuncture / Unknown 04/28/2025 10:47 AM EDT 04/28/2025 10:47 AM EDT Adeel Yeh MD LAB BLOOD ORDERABLES Final Resul t Performing Organization Address City/[facility]/ZIP Co de Phone Number [facility] [address] [place] [address], [place] [phone] * Comprehensive metabolic panel (04/28/2025 10:47 AM EDT) [facility] Sodium 139 133 - 145 mmol/L LAB CHEMISTRY METHOD 04/28/2025 4:11 PM [facility] Potassium 4.9 3.5 - 5.5 mmol/L LAB CHEMISTRY METHOD 04/28/2025 4:11 PM [facility] Chloride 106 96 - 110 [...] unit/L LAB CHEMISTRY METHOD 04/28/2025 4:11 PM [facility] ALT (SGPT) 49 10 - 60 unit/L LAB CHEMISTRY METHOD 04/28/2025 4:11 PM [facility] Alkaline Phosphatase 104 42 - 121 unit/L LAB CHEMISTRY METHOD 04/28/2025 4:11 PM [facility] Total Protein 6.9 6.0 - 8.0 g/dL LAB CHEMISTRY METHOD 04/28/2025 4:11 PM [facility] Albumin 4.4 3.2 - 5.0 g/dL LAB CHEMISTRY METHOD 04/28/2025 4:11 PM [facility] Total Bilirubin 0.6 0.0 - 1.4 mg/dL LAB CHEMISTRY METHOD 04/28/2025 4:11 PM [facility] Blood Venous blood specimen / Unknown Venipuncture / Unknown 04/28/2025 10:47 AM EDT 04/28/2025 10:47 AM EDT Adeel Yeh MD LAB BLOOD ORDERABLES Final Resul t [facility] [address] [place] [address], * MR Cervical Spine wo Contrast (04/12/2025 [...] Signed Date: 04/16/2025 01:34 ET Workstation ID: [id number] Transcribed By: Self Edit Transcribed Date: 04/16/2025 [...] Signed Date: 04/16/2025 01:34 ET Workstation ID: [id number] Transcribed By: Self Edit Transcribed Date: 04/16/2025 01:00 ET [facility] IMG MRI PROCEDURES Final Resul t * Depression Screening (02/17/2024) [facility] Depression Screening Abstracted Result [facility] Historical Provider HEALTH MAINTENANCE Final Result * Hepatitis C Screening (08/19/2023) [facility] Hepatitis C Screening Abstracted Result [facility] Provider HEALTH MAINTENANCE Final Result * Colonoscopy (07/09/2018) [facility] Colonoscopy No Interpretation , Abstracted Anatomical Region Laterality Modality Other Historical Provider HEALTH MAINTENANCE Final Result from Last 3 [...] currently active code status orders. Care Teams Boarding Mother Relationship Specialty Start Date End Date Adeel Yeh MD [address] [place] [id number] PCP - General 07/24/23
== END 2025-06-28 11:37 | disposition home or self-care (01) ==
LOC: HO.HPHYS 10:45
PROVIDERS: PCP Student in an Organized Health Care Education/Training Program; Visit Provider Physician Assistant
DX: M54.2 Cervicalgia (principal)
CPT/HCPCS: 99213

== ENCOUNTER → 2025-06-28 10:44 | Outpatient (BNVA) | payer MEDICARE, MEDICAID, SELFPAY | PROVIDERS: PCP Student in an Organized Health Care Education/Training Program; Visit Provider Physician Assistant | DX: M54.2 Cervicalgia (principal); F17.210 Nicotine dependence, cigarettes, uncomplicated | CPT/HCPCS: 99212 ==